=== PATIENT | male | born 1975 | race Caucasian/White ===

== ENCOUNTER 2016-12-10 12:37 | Observation (INO) | payer BC ==
[2016-12-10] MEDS ORDERED: Metoprolol Tartrate IV* 1 MG/ML 5 ML VIAL IV ONE (12:57)
[2016-12-10] MEDS ORDERED: Nitroglycerin 0.4 MG/HR PATCH* (10 MG) TRANSDERM ONE (13:11)
[2016-12-10 13:14] LABS: Hematocrit 45 % (42-52); Hemoglobin 14.9 g/dl (14.0-18.0); Mean Corpuscular HGB Conc 33 g/dl (31-36); Mean Corpuscular Hemoglobin 27 pg (27-31); Mean Corpuscular Volume 83 fL (80-94); Mean Platelet Volume 8 um3 (7.4-10.4); Red Blood Count 5.44 10^6/ul (4.0-5.4); Red Cell Distribution Width 14 % (10.5-15); White Blood Count 14.3 10^3/ul (3.5-10.8)
[2016-12-10 13:32] LABS: Albumin 4.1 g/dL (3.2-5.2); BUN/Creatinine Ratio 16.9 (8-20); Calcium 9.2 mg/dL (8.6-10.3); EGFR African American 120.6 (>60); EGFR Non-African American 93.7 (>60); Potassium 3.7 mmol/L (3.5-5.0); Total Bilirubin 0.4 mg/dL (0.2-1.0); Total Protein 7.1 g/dL (6.4-8.9)
--- NOTE | 2016-12-10 13:54 | RAD ---
INDICATION: Chest pain. COMPARISON: Comparison is made with a prior study from October 20, 2015. TECHNIQUE: A portable view of the chest was obtained. FINDINGS: Cardiac and mediastinal contours appear to be within normal limits. The lungs are clear. No pleural effusion is seen. IMPRESSION: NO EVIDENCE FOR ACUTE DISEASE.
[2016-12-10] MEDS ORDERED: Acetaminophen TAB* 325 MG PO PRN (14:03)
[2016-12-10 14:04] LABS: C Reactive Protein 29.63 mg/L (< 5.00)
[2016-12-10 14:07] LABS: Troponin I 0.05 ng/mL (<0.04)
[2016-12-10] MEDS ORDERED: Albuterol HFA INHALER* 8 gm MDI INH PRN (14:07)
[2016-12-10] MEDS: oxyCODONE TAB* 5 MG TAB PO PRN ×2 (14:46→20:22)
[2016-12-10] MEDS ORDERED: Enoxaparin(*) 40 MG/0.4 ML SYR SUBCUT SCH (15:00)
[2016-12-10] MEDS ORDERED: Morphine INJ* 2 MG/ML 1 ML CARPUJECT IV PRN (16:02)
[2016-12-10 16:25] LABS: Troponin I 0.11 ng/mL (<0.04)
[2016-12-10] MEDS ORDERED: Metoprolol Tartrate TAB* 50 mg PO ONE (16:30)
[2016-12-10] MEDS ORDERED: Heparin DRIP 25,000 UNITS(*) 25,000 UNITS/500 ML BAG IVPB SCH (16:30)
[2016-12-10] MEDS ORDERED: Ticagrelor* 90 MG TAB PO ONE (16:36)
--- NOTE | 2016-12-10 16:48 | PN ---
Hospitalist Progress Note 2nd troponin kaylin to 0.11 and patient is continuing to complain of chest pain. Contacted cissp, Dr Moralez, who will evaluated the patient. Heparin drip was initiated. Loaded with Brilinta. Transferred to ICU. EKG shows no changes. Patient has a confirmed allergy to aspirin. Metoprolol started. Repeat EKG ordered for 2 hours
[2016-12-10] MEDS ORDERED: Nitroglycerin 0.4 MG/HR PATCH* (10 MG) TRANSDERM SCH (17:00)
[2016-12-10] MEDS ORDERED: Clopidogrel TAB* 75 MG PO SCH (17:00)
[2016-12-10] MEDS ORDERED: Atorvastatin* 40 MG TAB PO SCH (17:00)
[2016-12-10] MEDS ORDERED: Heparin VIAL(*) 5000 UNITS/ML VIAL (FIVE THOUSAND) IV SCH (17:00)
[2016-12-10] MEDS ORDERED: nitroGLYCERIN DRIP* 25,000 MCG in PREMIX* 0 ML IV SCH (17:00)
[2016-12-10] MEDS ORDERED: nitroGLYCERIN DRIP* 250 ML ONE ×2 (17:27→18:10)
[2016-12-10] MEDS ORDERED: Midazolam* 1 MG/ML 5 ML VIAL (5 MG) ONE (18:06)
[2016-12-10] MEDS ORDERED: fentaNYL* 50 MCG/ML 2 ML VIAL (100 MCG VIAL) ONE (18:06)
[2016-12-10] MEDS ORDERED: Lidocaine 1% INJ* 10 MG/ML 30 ML SDV ONE (18:07)
[2016-12-10] MEDS ORDERED: Heparin 2 UNITS/ML IVPREMIX* 2,000 ML IV ONE (18:07)
[2016-12-10] MEDS ORDERED: Iohexol 350 (CONTRAST) 200 ML MDV IV ONE (18:07)
[2016-12-10] MEDS ORDERED: nitroGLYCERIN DRIP* 0 ML ONE (18:07)
[2016-12-10] MEDS ORDERED: Heparin(*) 1000 UNIT/ML 10 ML VIAL CATH LAB IV ONE (18:10)
[2016-12-10] MEDS ORDERED: VERAPAMIL 2.5 MG/ML 4 ML VIAL ONE (18:10)
[2016-12-10] MEDS ORDERED: NS 0.9% 1000 ML* 1,000 ML IV SCH (19:30)
--- NOTE | 2016-12-10 19:31 | ED ---
Ishmael Espinoza Janilya, scribed for Jc Diaz MD on 12/10/16 at 1301 . HPI Chest Pain - HPI Summary HPI Summary: A 41 y/o male was BIBA for a sudden episode of CP today an hour and a half ago. Pt was playing basketball with his son when he suddenly felt "massive pain through chest". Pt was not running or doing any strenuous exercise. Pt reports he profoundly felt his heartbeat pulsation in neck and head, but not in jaw. Pt states he felt like his "heart was out of his chest". Pt stopped and went inside. He measured his heartbeat, and it was 151 bpm. He sat down for half an hour, however, his heartbeat only dropped slightly. He then called 911. Pt reports diaphoresis and cold sweats while sitting and waiting for EMS, but no nausea. Pt was given nitro en route by EMS, which helped the CP slightly. He still rated his CP 5/10. Now at [facility], pt reports some CP and some pain going down his left arm. Pt denies chest pain to palpation. PMHx asthma, HTN, herniated disk in lower back and neck. Takes medication for asthma and herniated disk (oxycodone). Allergic to aspirin. No SHx of tobacco use. - History of Current Complaint Time Seen by Provider: 12/10/16 12:39 Hx Obtained From: Patient Onset/Duration: Started Hours Ago, Atraumatic, Still Present Timing: Constant Initial Severity: Moderate Current Severity: Moderate Chest Pain Location: Diffuse Chest Pain Radiates: Yes Chest Pain Radiates To:: Arm, Neck Aggravating Factor(s): Exertion, Movement Alleviating Factor(s): Rest, NTG 123, EMS Tx Associated Signs and Symptoms: Positive: Chest Pain, Chills, Diaphoresis, Cough. Negative: Nausea - Risk Factors Pulmonary Embolism Risk Factors: Negative TAD Risk Factors: Smoking - former, Hypertension AMI/ACS Risk Factors: Hypertension, Smoking - former - Allergy/Home Medications Allergies/Adverse Reactions: Allergies Allergy/AdvReac Type Severity Reaction Status Date / Time Aspirin Allergy Severe Swelling Verified 04/06/16 12:39 Of Face,Lips,& Throat Ibuprofen Allergy Swelling Verified 04/06/16 12:39 Of Face,Lips,& Throat Naproxen Allergy Swelling Verified 05/19/16 12:39 Of Face,Lips,& Throat Home Medications: Home Medications Albuterol Sulfate [Proair Hfa] 2 puff INH Q4H PRN 12/10/16 [History Confirmed ] Diazepam TAB(*) [Valium TAB(*)] 2.5 mg PO BID MDD 4 12/10/16 [History Confirmed 12/10/16] Lisinopril [Lisinopril] 10 mg PO DAILY 12/10/16 [History Confirmed 12/10/16] PMH/Surg Hx/FS Hx/Imm Hx Endocrine/Hematology History: Denies: Hx Diabetes, Hx Thyroid Disease Cardiovascular History: Reports: Hx Hypertension Denies: Hx Pacemaker/ICD Respiratory History: Reports: Hx Asthma Denies: Hx Chronic Obstructive Pulmonary Disease (COPD) GI History: Denies: Hx Ulcer History: Denies: Hx Renal Disease Sensory History: Denies: Hx Hearing Aid Psychiatric History: Denies: Hx Panic Disorder - Surgical History Surgery Procedure, Year, and Place: APPENDIX, GALLBLADDER, TONSILS. 09/01/13 - DISSOLVING [place] Pellets put into LEFT & RiGHT hip - ( HAVE DISSOLVED AT THIS TIME) Infectious Disease History: Denies: Hx Clostridium Difficile, Hx Hepatitis, Hx Human Immunodeficiency Virus (HIV), Hx of Known/Suspected MRSA, Hx Shingles, Hx Tuberculosis, Hx Known/ Suspected VRE, Hx Known/Suspected VRSA, History Other Infectious Disease, Traveled Outside the [place] in Last 30 Days - Family History Known Family History: Negative: Cardiac Disease Family History: Mother - Crohn's. Father - Liver dz - Social History Lives: With Family Alcohol Use: None Hx Substance Use: No Substance Use Type: Reports: None, Prescribed Hx Tobacco Use: Yes Smoking Status (MU): Former Smoker Review of Systems Positive: Chills, Skin Diaphoresis Positive: Palpitations, Chest Pain - radiates to left arm Negative: Nausea Positive: Arthralgia - pt denies CP to palpation, Myalgia - pt denies CP to palpation All Other Systems Reviewed And Are Negative: Yes Physical Exam Triage Information Reviewed: Yes Vital Signs On Initial Exam: Temp Pulse Resp BP Pulse Ox 98.5 F 89 16 154/76 99 12/10/16 12:42 12/10/16 12:42 12/10/16 12:42 12/10/16 12:42 12/10/16 12:42 Vital Signs Reviewed: Yes Appearance: Positive: Well-Appearing, No Pain Distress Skin: Positive: Warm, Skin Color Reflects Adequate Perfusion, Dry Head/Face: Positive: Normal Head/Face Inspection Eyes: Positive: Normal ENT: Positive: Normal ENT inspection Neck: Positive: Supple, Nontender Respiratory/Lung Sounds: Positive: Clear to Auscultation, Breath Sounds Present Cardiovascular: Positive: RRR. Negative: Murmur Abdomen Description: Positive: Nontender, Soft Bowel Sounds: Positive: Present Musculoskeletal: Positive: Normal Neurological: Positive: Normal Psychiatric: Positive: Affect/Mood Appropriate Diagnostics - Vital Signs Vital Signs Temp Pulse Resp BP Pulse Ox 12/10/16 15:00 83 16 98 12/10/16 14:00 86 17 158/87 100 12/10/16 13:30 147/71 12/10/16 13:26 84 15 100 12/10/16 13:21 81 15 140/66 100 12/10/16 13:00 86 15 100 12/10/16 12:50 90 13 99 12/10/16 12:42 98.5 F 89 16 154/76 99 - Laboratory Lab Results: Lab Results 12/10/16 12/10/16 12/10/16 Range/Units 13:05 13:05 13:05 WBC 14.3 H (3.5-10.8) 10^3/ul RBC 5.44 H (4.0-5.4) 10^6/ul Hgb 14.9 (14.0-18.0) g/dl Hct 45 (42-52) % MCV 83 (80-94) fL MCH 27 (27-31) pg MCHC 33 (31-36) g/dl RDW 14 (10.5-15) % Plt Count 270 (150-450) 10^3/ul MPV 8 (7.4-10.4) um3 Neut % (Auto) 84.8 H (38-83) % Lymph % (Auto) 8.3 L (25-47) % [place] % (Auto) 5.7 (1-9) % Eos % (Auto) 0.5 (0-6) % Baso % (Auto) 0.7 (0-2) % Absolute Neuts (auto) 12.2 H (1.5-7.7) 10^3/ul Absolute Lymphs (auto) 1.2 (1.0-4.8) 10^3/ul Absolute Monos (auto) 0.8 (0-0.8) 10^3/ul Absolute Eos (auto) 0.1 (0-0.6) 10^3/ul Absolute Basos (auto) 0.1 (0-0.2) 10^3/ul Absolute Nucleated RBC 0 10^3/ul Nucleated RBC % 0 Sodium 133 (133-145) mmol/L Potassium 3.7 (3.5-5.0) mmol/L Chloride 100 L (101-111) mmol/L Carbon Dioxide 25 (22-32) mmol/L Anion Gap 8 (2-11) mmol/L BUN 15 (6-24) mg/dL Creatinine 0.89 (0.67-1.17) mg/dL Est GFR ( Amer) 120.6 (>60) Est GFR (Non-Af Amer) 93.7 (>60) BUN/Creatinine Ratio 16.9 (8-20) Glucose 109 H (70-100) mg/dL Lactic Acid 2.0 (0.5-2.0) mmol/L Calcium 9.2 (8.6-10.3) mg/dL Total Bilirubin 0.40 (0.2-1.0) mg/dL AST 34 (13-39) U/L ALT 37 (7-52) U/L Alkaline Phosphatase 84 (34-104) U/L Total Creatine Kinase 51 (10-223) U/L CK-MB (CK-2) 2.3 (0.6-6.3) ng/mL Troponin I 0.05 H* (<0.04) ng/mL C-Reactive Protein 29.63 H (< 5.00) mg/L Total Protein 7.1 (6.4-8.9) g/dL Albumin 4.1 (3.2-5.2) g/dL Globulin 3.0 (2-4) g/dL Albumin/Globulin Ratio 1.4 (1-3) Procalcitonin (<0.6) ng/mL 12/10/16 12/10/16 Range/Units 13:05 15:41 WBC (3.5-10.8) 10^3/ul RBC (4.0-5.4) 10^6/ul Hgb (14.0-18.0) g/dl Hct (42-52) % MCV (80-94) fL MCH (27-31) pg MCHC (31-36) g/dl RDW (10.5-15) % Plt Count (150-450) 10^3/ul MPV (7.4-10.4) um3 Neut % (Auto) (38-83) % Lymph % (Auto) (25-47) % [place] % (Auto) (1-9) % Eos % (Auto) (0-6) % Baso % (Auto) (0-2) % Absolute Neuts (auto) (1.5-7.7) 10^3/ul Absolute Lymphs (auto) (1.0-4.8) 10^3/ul Absolute Monos (auto) (0-0.8) 10^3/ul Absolute Eos (auto) (0-0.6) 10^3/ul Absolute Basos (auto) (0-0.2) 10^3/ul Absolute Nucleated RBC 10^3/ul Nucleated RBC % Sodium (133-145) mmol/L Potassium (3.5-5.0) mmol/L Chloride (101-111) mmol/L Carbon Dioxide (22-32) mmol/L Anion Gap (2-11) mmol/L BUN (6-24) mg/dL Creatinine (0.67-1.17) mg/dL Est GFR ( Amer) (>60) Est GFR (Non-Af Amer) (>60) BUN/Creatinine Ratio (8-20) Glucose (70-100) mg/dL Lactic Acid (0.5-2.0) mmol/L Calcium (8.6-10.3) mg/dL Total Bilirubin (0.2-1.0) mg/dL AST (13-39) U/L ALT (7-52) U/L Alkaline Phosphatase (34-104) U/L Total Creatine Kinase 64 (10-223) U/L CK-MB (CK-2) 4.0 (0.6-6.3) ng/mL Troponin I 0.11 H* (<0.04) ng/mL C-Reactive Protein (< 5.00) mg/L Total Protein (6.4-8.9) g/dL Albumin (3.2-5.2) g/dL Globulin (2-4) g/dL Albumin/Globulin Ratio (1-3) Procalcitonin 0.1 (<0.6) ng/mL Result Diagrams: 12/10/16 13:05 12/10/16 13:05 Lab Statement: Any lab studies that have been ordered have been reviewed, and results considered in the medical decision making process. - Radiology CXR Xray Interpretation: No Acute Changes - IMPRESSION: No evidence for acute disease. Radiology Interpretation Completed By: Radiologist - EKG 1233 Cardiac Rate: NL - 89 bpm EKG Rhythm: Sinus Rhythm ST Segment: Non-Specific EKG Interpretation: Consistent w/ EKG done on 10/20/2015 Chest Pain Course/Dx - Course Course Of Treatment: Dallin Tovar presented with a worrisome story for ACS. His ecg was suggestive of inferolateral ischemiaa but not much different from one a year ago. He was given and NTG patch and lopressor was ordered but he refused it. The hospitalists were contacted for CDU admission and his first trop came back at 0.05. - Diagnoses Provider Diagnoses: Chest pain - Provider Notifications Discussed Care Of Patient With: Dr. Mejia (hospitalist) at 1308: agrees to evaluate pt. Discharge - Discharge Plan Condition: Stable Disposition: ADMITTED TO [facility] The documentation as recorded by the Ishmael paz Janilya accurately reflects the service I personally performed and the decisions made by me, Jc Diaz MD.
[2016-12-10] MEDS: oxyCODONE SR TAB(*) 10 MG TAB.SR PO SCH (20:10)
[2016-12-10] MEDS: Metoprolol Tartrate TAB* 25 MG PO SCH (20:22)
--- NOTE | 2016-12-10 20:56 | HP ---
ALLERGY ADDENDUM NOW INCLUDED ON THIS REPORT ADMISSION HISTORY AND PHYSICAL: DATE OF ADMISSION: 12/10/16 PRIMARY CARE PROVIDER: Dr. Carlos. PRIMARY EVALUATION MANAGER: Dr. Gamboa. ADMITTING PROVIDER: JAZ Gaffney SUPERVISING PHYSICIAN: Dr. Bernard Mejia.* (DICTATED BY JAZ GAFFNEY) CHIEF COMPLAINT: Chest pain. HISTORY OF PRESENT ILLNESS: This is a 41-year-old gentleman with chronic neck and back pain as well as GERD, hypertension, asthma, anxiety, and irritable bowel syndrome, who presented to the emergency department with complaints of chest pain. The patient states that he was playing basket ball with his son at a rather low level of intensity due to his chronic pain when he had a sudden onset of chest pain and felt as if "his heart was racing." He was able to walk back to the house quite slowly, but had to take multiple rests and when he came in to the house, he has a pulse oximeter at home because of his history of asthma. He reported that his oxygen saturations were normal, but his heart rate was at approximately 150 beats per minute and after resting for several minutes, it got down only to 120 beats per minute at which point he contacted EMS. The patient was given 1 tablet of nitroglycerin after which his chest pain improved significantly to about a 2/10 on the pain scale from a 5/10 on the pain scale, but reports over the last several minutes, his pain has been increasing again. He denies any personal or family cardiac history. He states that he has had similar symptoms but to a lesser effect with a prior panic attack and had a stress test about 3 years ago which was within normal limits. He states that at the time that he had a panic attack, he had significant stressors at work, but states that he has had no recent stress and denied any anxiety. He is on a twice daily benzodiazepine which serves as anxiolytic as well as muscle relaxant to help treat his chronic neck and back pain. The patient denied any associated shortness of breath. He did become significantly diaphoretic with his pain and the pain radiated into his left shoulder. He denied any nausea or vomiting. No abdominal pain or diarrhea. No recent illnesses. He reports that he has been coughing quite frequently since the pain started, but this was not a symptom prior to the pain starting. PAST MEDICAL HISTORY: 1. GERD. 2. Hypertension. 3. Asthma. 4. Chronic neck and back pain. 5. Irritable bowel syndrome. 6. Anxiety. PAST SURGICAL HISTORY: 1. Appendectomy. 2. Cholecystectomy. 3. Tonsillectomy. HOME MEDICATIONS: 1. ProAir 2 puffs inhaled q.4 hours p.r.n. shortness of breath. 2. Valium 2.5 mg p.o. twice daily. 3. Lisinopril 10 mg p.o. daily. 4. Singulair 10 mg p.o. daily. 5. Protonix 40 mg p.o. daily. 6. Oxycodone sustained release 10 mg p.o. twice daily. 7. Oxycodone immediate release 5 mg p.o. q.4 hours p.r.n. pain. FAMILY HISTORY: The patient denies any family history of coronary disease. Both his mother and father relatively young; his father was of complications of liver disease and his mother of complications of Crohn's disease. SOCIAL HISTORY: The patient lives at home with his and three step- children. 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 He has a less than 5-pack-year smoking history and quit greater than 20 years ago. Denies any regular alcohol consumption. REVIEW OF SYSTEMS: Negative except as noted in the HPI. PHYSICAL EXAMINATION GENERAL: This is a well-appearing, middle-aged gentleman in no acute distress. VITAL SIGNS: Temperature 98.5 degrees Fahrenheit, pulse 89 beats per minute, respiratory rate 16, oxygen saturation 99% on room air, blood pressure 154/76 mmHg. HEENT: Head is normocephalic and atraumatic. Mucous membranes are pink and moist. RESPIRATORY: Lungs are clear to auscultation without wheezes, crackles, or rhonchi. CARDIOVASCULAR: Heart has a regular rate and rhythm without murmurs, rubs, or gallops. ABDOMEN: Soft and nontender to palpation with bowel sounds present. EXTREMITIES: No lower extremity edema. PSYCH: The patient is alert and appropriately oriented. SKIN: Limited exam shows no concerning rashes or lesions. DIAGNOSTIC STUDIES/LAB DATA: CBC shows a white blood cell count of 14,300, hemoglobin 14.9 g/dL, and a platelet count of 270,000. Comprehensive metabolic panel was unremarkable. Sodium of 133 mmol/L, potassium 3.7 mmol/L, BUN of 15, creatinine of 0.89, and estimated GFR of 93. Transaminases and total bilirubin are within normal limits. Troponin elevated at 0.05. CRP mildly elevated at 29. Procalcitonin is pending. Imaging: Chest x-ray shows no acute process. EKG is normal sinus rhythm without acute ischemic changes. ASSESSMENT AND PLAN: This is a 41-year-old gentleman without a personal history or family history of cardiac disease, who presents with sudden-onset chest pain that has been rather persistent with mildly elevated troponin. 1. Chest pain - the patient's history is quite concerning for this to be cardiac in origin and an initial troponin is mildly elevated. No EKG changes appreciated. We will plan to admit and complete serial troponins, maintain continuous telemetry. Start aspirin and empiric statin. If second troponin rises, we will anticoagulate appropriately for acute coronary syndrome. The patient is having ongoing chest pain at this time. We will plan to repeat an EKG as well. Nitro patch placed in the emergency department with some relief. If troponins are unremarkable overnight, then the patient will complete nuclear stress test in the morning. 2. Leukocytosis - CRP is mildly elevated. Procalcitonin is pending. No obvious source of infection. It seems that this is a leukemoid reaction secondary to acute event of chest pain, but we will plan to repeat a CBC tomorrow, be diligent to look for obvious signs of infection. 3. Hypertension - continue lisinopril. 4. Chronic back pain - continue his current regimen of sustained and immediate - release oxycodone. 5. Asthma - no evidence of acute exacerbation and continue p.r.n. albuterol and his daily Singulair. 6. Anxiety - the patient is not looking terribly anxious at this time. We will continue his current home medications of twice daily low-dose Valium. 7. Code status - the patient is full code. 8. Healthcare proxy is the patient's . 9. DVT prophylaxis - he will be placed on Lovenox 40 mg subcu daily. DISPOSITION: The patient is being admitted to observation status for complaints of chest pain with anticipation for discharge tomorrow. JAZ GAFFNEY ADDENDUM: Upon further chart review, the patient has a listed allergy of ASPIRIN. He has a confirmed reaction of facial swelling and itching to this medication. We will not empirically start ASPIRIN, but will load with Plavix if troponin continues to rise. JAZ GAFFNEY CC: Dr. Carlos; Dr. Gamboa* [id number]/[facility] #: [id number]/CPS #: [id number] JANIS
--- NOTE | 2016-12-10 20:56 | HP ---
HISTORY AND PHYSICAL:* DATE OF ADMISSION: 12/10/16 ADDENDUM: Upon further chart review, the patient has a listed allergy of ASPIRIN. He has a confirmed reaction of facial swelling and itching to this medication. We will not empirically start ASPIRIN, but will load with Plavix if troponin continues to rise. JAZ GAFFNEY [id number]/[facility] #: [id number] HEALTH SYSTEMRachael
[2016-12-10] MEDS: Diazepam TAB(*) 5 MG PO SCH (21:29)
--- NOTE | 2016-12-10 23:49 | CONS ---
CARDIOLOGY CONSULTATION: DATE OF CONSULTATION: 12/10/16 INDICATION FOR THE CONSULT: The patient with recurrent chest discomfort, abnormal troponin, rule out the presence of significant coronary artery disease. HISTORY OF PRESENT ILLNESS: The patient is a pleasant 41-year-old gentleman with no prior known history of coronary artery disease. He is known to my practice where I have seen him since 2010 and during that time he has had multiple negative stress tests performed. He has a history of essential hypertension and complains about palpitations, but we have never been able to find any significant rhythm disturbance. He wanted to think over the idea of an implantable loop recorder, but never had called back. He did not follow up in his appointment in 2014. The patient states that he was in his usual state of health, out playing basketball with his son when he developed the onset of significant chest pressure, 10/10, with radiation to the left shoulder and down the left arm. He felt somewhat short of breath with this as well. He felt his heart rate was going incredibly fast. He tried to walk back to his house and had to stop intermittently. Whenever he would exert himself, it would hurt more. Eventually, he got home and checked his blood pressure machine for the pulse and found it to be in the 150s. He eventually called the paramedics and over time prior to them getting there, his pulse seemed to come down to 120, but he still had symptoms. The patient was given nitroglycerin with some clear improvement of symptoms, and by the time he got to the hospital, his pulse rate was significantly lower. An EKG initially in the emergency room, timed 15:22, today revealed normal sinus rhythm, heart rate 82, minimal downsloping ST segment in II, III, and borderline in aVF. There was minimal horizontal depression in V6, clearly not diagnostic for ischemia. He was admitted to the floor. He was placed initially on IV nitroglycerin, but then it was stopped due to headache. By the time he was going up to the floor, he had 3/10 recurrent chest discomfort and has had it even up until the time that I am seeing him now. He is being transferred down to the intensive care unit as the hospitalist had initially spoken to Dr. Zeferino Moralez who referred the case for me to see in consultation, and the hospitalist, Joe Swanson NP, gave the patient 180 mg of Brilinta and bolused with heparin and put on a heparin drip. They have not restarted a nitro drip. The patient's cardiac risk factors include history of essential hypertension. No history of diabetes. No known history of increased cholesterol. No definitive family history of early heart disease and he quit smoking at the age of 20. PAST MEDICAL HISTORY: 1. History of asthma. 2. Essential hypertension. 3. Prior workups for dizziness with normal Holter and question of a 50% narrowing in the proximal portion of the right internal carotid, less on the left. 4. He has a history of atypical chest pain evaluations in the past. ALLERGIES: The patient is allergic to ASPIRIN; after taking EXCEDRIN, he developed swelling of his throat and swelling of his face and needed to be on steroid therapy and was treated in the emergency room for a severe reaction. He has never taken aspirin since. He went to an watch hairspring assembler who said he may be also allergic to NSAIDs. REVIEW OF SYSTEMS: Pertinent to proceeding to the cardiovascular laboratory, he denies any history of hematochezia, hematemesis, hematuria. He denies any history of renal problems in the past. He denies any allergy to the contrast dye and he has had no TIAs or strokes in the past. PHYSICAL EXAMINATION: Vital Signs: When I see him in the intensive care unit reveals pleasant gentleman, still having 3/10 chest discomfort, blood pressure 152/83, pulse is in the 80s, O2 saturation is 98% on room air, respirations 20. Neck is supple. No increased JVP. Carotids with good upstroke and volume without bruits. Conjunctivae are pink. Sclerae are clear. Mouth revealed moist mucosa. Lungs reveal no accessory muscle usage. There is good excursion. Lungs are clear to A and P. Heart reveals no visible heaves. No palpable heaves or thrills. Normal S1. S2 with no S3, S4 gallop. No significant systolic or diastolic murmurs were appreciated. Abdomen is obese, soft, and nontender without organomegaly. Extremities are without clubbing, cyanosis, or randi pitting edema. Peripheral pulses intact. Neuro: The patient is alert, oriented with normal mentation. Musculoskeletal: The patient with normal gait. Psychiatric: The patient with normal affect. LABORATORY DATA: Laboratory results reveal white blood count of 14,300, hemoglobin and hematocrit of 14.9 and 45, platelet count of 270,000. Sodium 133 , potassium 3.7, chloride 100, bicarb 25, BUN and creatinine 15 and 0.8. Lactic acid 2.0. Total bili 0.4, SGOT 34, SGPT 37. First troponin 0.05, repeat troponin of 0.11 after I had asked them to draw total CPK and MB, so in those 2 samples, they came back 51 and 2.3 on the first sample and 64 and 4.0 on the second sample. Chest x-ray report revealed no evidence of acute pathology. OVERALL ASSESSMENT: Dallin now presents with presentation of significant chest discomfort, 08/28, with rising troponins, raising the question of a non-ST elevation, myocardial infarction. His total CPK is not significantly elevated, but the MB is trending upward and CPK is slightly upward. Of note, he has had multiple problems with chest discomfort before. His EKG has subtle ST segment changes to the inferior apical leads. With continued ongoing symptoms and rising troponin, I would favor proceeding to the cardiovascular laboratory to get a definitive answer as to rule in or rule out coronary artery disease. Clearly, if none is present, I would probably attribute this to a development of a tachycardic rhythm with a heart rate in the 150s for a sustained period of time, which may have bumped his troponin slightly. We will await the results of the cardiac catheterization. The risks and benefits were explained to the patient and he understands them and wishes to proceed to get a definitive answer. Further management will be made pending the results of this. He has received Brilinta 180 mg and heparin therapy with a bolus and a heparin drip and on IV nitroglycerin per the hospitalist, JAZ Castillo. We will adjust medications as needed after we get the results of the catheterization. CC: Skyler Carlos MD* [id number]/[facility] #: [id number] JANIS
[2016-12-11] MEDS: oxyCODONE TAB* 5 MG TAB PO PRN ×3 (02:58→15:12)
[2016-12-11 06:05] LABS: Hematocrit 45 % (42-52); Hemoglobin 14.9 g/dl (14.0-18.0); Mean Corpuscular HGB Conc 33 g/dl (31-36); Mean Corpuscular Hemoglobin 28 pg (27-31); Mean Corpuscular Volume 83 fL (80-94); Mean Platelet Volume 8 um3 (7.4-10.4); Red Cell Distribution Width 14 % (10.5-15); White Blood Count 13.1 10^3/ul (3.5-10.8)
[2016-12-11 06:22] LABS: BUN/Creatinine Ratio 15.6 (8-20); Calcium 9.2 mg/dL (8.6-10.3); EGFR African American 110.5 (>60); EGFR Non-African American 85.9 (>60); Potassium 4.1 mmol/L (3.5-5.0)
[2016-12-11 06:26] LABS: Troponin I 0.05 ng/mL (<0.04)
[2016-12-11] MEDS ORDERED: Omeprazole CAP* 20 MG PO SCH (07:30)
--- NOTE | 2016-12-11 08:41 | CATH ---
CARDIAC CATHETERIZATION REPORT: DATE OF PROCEDURE: 12/10/16 - ROOM #ICU-05 INDICATION FOR PROCEDURE: The patient with prolonged chest discomfort episode with rising troponins, rule out the presence of significant coronary artery disease with possible non-STEMI. PROCEDURE: Left heart catheterization, coronary arteriography. DESCRIPTION OF PROCEDURE: The patient was interviewed and examined on the floor of the hospital, where the risks and benefits were explained. He understood them and wished to proceed. He was brought to the cardiovascular laboratory, where a formal time-out was performed. The right radial artery was assessed for eligibility to use for the procedure and it was found to be acceptable for this and, as such, the patient was prepped and draped in a sterile fashion. The right radial artery area was anesthetized with 1% lidocaine and right radial artery was cannulated and a 6- Maltese glide sheath was placed. Coronary arteriography was performed using a 5- Maltese 4 curved TIG catheter. Left heart catheterization was performed utilizing the same TIG catheter as it had dropped into the left ventricle and recording and pullback could be obtained. Following this, the catheter was removed and the sheath was removed. Hemostasis was obtained with a Vasc Band. Of note, medication given during the procedure included a total of 1.5 mg of Versed. The patient had already received a heparin bolus and a heparin drip from admission and 180 mg of Brilinta. The patient has an allergy to ASPIRIN. The total contrast used was 90 cc of Omnipaque dye. The radiation exposure included 4.9 minutes of fluoro time. The air kerma radiation was 833 milligray. The DAP radiation was 4741 microgray per meter squared. RESULTS: HEMODYNAMIC DATA: Left heart catheterization - central aortic pressure was recorded at 109/80 with a mean of 94. Left ventricular pressure 111 over left ventricular end- diastolic pressure of 9. CORONARY ARTERIOGRAPHY: A. Right coronary artery - dominant vessel supplying the PDA and multiple posterior left ventricular branches. There was no significant lesion seen throughout the course of this vessel. Of note, the PDA extended well to the apical region and minimally onto the distal anterior wall. B. Left coronary artery. 1. Left main - widely patent. 2. Left anterior descending artery. There was no significant narrowing seen throughout the course of the left anterior descending artery, extended toward the distal anterior wall, but not well onto the apex or onto the distal inferior wall. The diagonal branches had no significant obstruction noted. 3. Circumflex artery - supplied a high first obtuse marginal branch/ trifurcation marginal branch, small in caliber, but no significant disease. The rest of the circumflex supplied multiple mid and low-lying obtuse marginal branches. The caliber of the mid vessels were small in nature with a larger last posterior left ventricular branch. No fixed obstruction was noted. The ostium of the circumflex had perhaps a 10% to 15% narrowing. OVERALL ASSESSMENT: No significant stenotic coronary artery disease noted with normal left ventricular end-diastolic pressure. The patient will be getting an echocardiogram tomorrow to assess for left ventricular hypertrophy given his history of hypertension and also to assess left atrial and right atrial size with the history of rapid heart beating. Wall motion analysis will also be assessed as well. CC: Dr. Skyler Carlos * [id number]/[facility] #: [id number] MTDD
[2016-12-11] MEDS ORDERED: Lisinopril TAB* 10 MG PO SCH ×2 (09:00)
[2016-12-11] MEDS ORDERED: Montelukast Sodium TAB* 10 MG PO SCH (09:00)
[2016-12-11] MEDS ORDERED: Aspirin EC Low Dose* 81 MG TAB.EC PO SCH (09:00)
[2016-12-11] MEDS ORDERED: Clopidogrel TAB* 75 MG PO SCH (09:00)
[2016-12-11] MEDS: oxyCODONE SR TAB(*) 10 MG TAB.SR PO SCH (09:03)
[2016-12-11] MEDS: Diazepam TAB(*) 5 MG PO SCH (09:04)
[2016-12-11] MEDS: Metoprolol Tartrate TAB* 25 MG PO SCH (09:08)
[2016-12-11 11:21] VITALS: BP 120/69
--- NOTE | 2016-12-11 12:27 | ECHO ---
Patient: HELENA ANDUJAR [facility] Rec#: [id number] : 1975 Date: 12/11/2016 Age: 41y Height: 180.34 cm / 71.0 in Weight: 105.69 kg / 232.9 lbs Sex: M BSA: 2.25 Room#: [facility] Admit Date#: 12/10/2016 Type: Inpatient Referring: Joe Swanson Reading: Sal Aguilar MD [employer] Operator: Parvin Hatch RDCS CC: Skyler Carlos MD Transthoracic Echocardiogram Indication: Chest Pain, NSTEMI BP: 109/63 HR: 67 Rhythm: NSR Findings History: NSTEMI, GERD, HTN, Anxiety. Technical Comments: The study quality is good. Exam completed at 0835. Left Ventricle: The left ventricular chamber size is normal. Posterior wall hypertrophy is observed. There is normal left ventricular systolic function. The estimated ejection fraction is 55-60%. Normal left ventricular diastolic filling is observed. Left Atrium: The left atrium is normal in size. The left atrial chamber size is normal. Right Ventricle: The right ventricular cavity size is normal. The right ventricular global systolic function is normal. Right Atrium: The right atrial cavity size is normal. Aortic Valve: The aortic valve is trileaflet. There is no evidence of aortic valve thickening. There is no evidence of aortic regurgitation. There is no evidence of aortic stenosis. Mitral Valve: The mitral valve leaflets appear normal. There is a trace of mitral regurgitation. There is no evidence of mitral stenosis. Tricuspid Valve: The tricuspid valve leaflets are normal. There is a physiologic tricuspid regurgitation. Unable to estimate the right ventricular systolic pressure. There is no tricuspid stenosis. Pulmonic Valve: The pulmonic valve appears normal. There is no evidence of pulmonic regurgitation. There is no pulmonic stenosis. Pericardium: A trivial pericardial effusion is visualized. There are no signs of significant hemodynamic compromise. Aorta: There is no dilatation of the ascending aorta. There is no dilatation of the aortic arch. There is no dilation of the aortic root. Pulmonary Artery: The main pulmonary artery appears normal. Venous: The venous system is not well visualized. Conclusions There is normal left ventricular systolic function. The estimated ejection fraction is 55-60%. Normal left ventricular diastolic filling is observed. There is no evidence of aortic regurgitation. There is a trace of mitral regurgitation. There is a physiologic tricuspid regurgitation. Unable to estimate the right ventricular systolic pressure. A trivial pericardial effusion is visualized. There are no signs of significant hemodynamic compromise. Measurements Name Value Normal Range RVIDd (AP) 2D 3.6 cm (0.9 - 2.6) RVDdMajor (2D) 3.1 cm (2.2 - 4.4) RAd ISD 4CH 4.6 cm (3.4 - 4.9) RA (A4C)W 4.2 cm (2.9 - 4.6) IVSd (2D) 1 cm (0.6 - 1) LVPWd (2D) 1.1 cm (0.6 - 1) LVIDd (2D) 4.2 cm (3.6 - 5.4) LVIDs (2D) 3 cm - LV FS (2D) 28 % (25 - 45) Aortic Annulus 2 cm (1.4 - 2.6) Ao root diameter (2D) 2.7 cm (2.1 - 3.5) Ascending Ao 2.5 cm (2.1 - 3.4) Aortic arch 2.3 cm (1.8 - 3.4) Descending Ao 1.1 cm - LA dimension (AP) 2D 3.2 cm (2.3 - 3.8) LAd ISD 4CH 5.3 cm (2.9 - 5.3) LA ISD 4CH W 4.4 cm (2.5 - 4.5) Name Value Normal Range LA ESV SP 4CH (A/L) 47 ml - LA ESV SP 2CH (A/L) 41 ml - LA ESV BP (A/L) 49 ml - LA ESV BP (A/L) index 21.71 ml/m2 - LA ESV SP 4CH (MOD) 39 ml - LA ESV SP 2CH (MOD) 37 ml - Name Value Normal Range MV E-wave Vmax 1.1 m/sec - MV deceleration time 215 msec - MV A-wave Vmax 0.8 m/sec - MV E:A ratio 1.34 ratio - LV septal e' Vmax 0.15 m/sec - LV lateral e' Vmax 0.14 m/sec - LV E:e' septal ratio 7.33 ratio - LV E:e' lateral ratio 7.86 ratio - Name Value Normal Range AV Vmax 1.6 m/sec - AV VTI 29.7 cm - AV peak gradient 9.9 mmHg - AV mean gradient 5.04 mmHg - LVOT Vmax 1.3 m/sec - LVOT VTI 27.8 cm - LVOT peak gradient 7.11 mmHg - LVOT mean gradient 3.68 mmHg - Name Value Normal Range PV Vmax 1.3 m/sec - PV peak gradient 6.29 mmHg -
--- NOTE | 2016-12-11 15:46 | DCNOTE ---
Patient seen this morning and again in the afternoon. No chest pain or palpitations. Ambulated around the unit with no issue and no tachycardia. On exam, RRR, s1 and s2 present, no m/g/r, lungs CTA B/L, no w/r/r, abd soft, NTND, BS+ Cardiac catheterization showed no significant stenosis. Troponin elevation likely demand-mediated from tachyarrhytmia. Echo unremarkable. No further tachyarrhythmias on tele. Plan to discharge home on beta-seymour. F/U with Dr. Gamboa and PCP as an outpatient.
--- NOTE | 2016-12-12 09:42 | DS ---
DISCHARGE SUMMARY: DATE OF ADMISSION: 12/08/16. DATE OF DISCHARGE: 12/11/16. PRIMARY CARE PROVIDER: Dr. Carlos. PRINCIPAL DISCHARGE DIAGNOSES: 1. Demand mediated NSTEMI. 2. Tachyarrhythmia. 3. Possible SVT. SECONDARY DIAGNOSES: 1. Hypertension. 2. Chronic back pain. 3. Asthma. 4. GERD. 5. Irritable bowel syndrome. 6. Anxiety. CONSULTANTS DURING HOSPITALIZATION: Dr. Ambrocio Gamboa, Cardiology. STUDIES DONE DURING CONSULTATION: 1. Chest x-ray. Impression: No evidence for acute. 2. Transthoracic echocardiogram: There is normal left ventricular systolic function. The estimated ejection fraction is 55-60%. Normal left ventricular diastolic filling is observed. There is no evidence of aortic regurgitation. There is trace to mild regurgitation. There is physiologic tricuspid regurgitation. Unable to estimate the right ventricular systolic pressure. Trivial pericardial effusion is visualized. There are no signs of significant hemodynamic compromise. 3. Cardiac catheterization. Overall assessment: No significant stenotic coronary artery disease noted with normal ventricular and diastolic pressure. DISCHARGE MEDICATION REGIMEN: 1. Metoprolol 25 mg by mouth 2 times daily. 2. Montelukast 10 mg by mouth daily. 3. Protonix 40 mg mg by mouth daily. 4. Oxycodone 10 mg mg by mouth 2 times daily. 5. Oxycodone extended release 5 mg by mouth every 4 hours as needed for pain. 6. Albuterol sulfate two puffs inhaled every 4 hours as needed for wheezing or shortness of breath. 7. Valium 2.5 mg by mouth 2 times daily. 8. Lisinopril 10 mg by mouth daily. HISTORY OF PRESENT ILLNESS AND HOSPITAL SUMMARY: Please see the full history and physical by JAZ Castillo for full details. Briefly, Mr. Tovar is a 41-year- old male with a past medical history as above who presented to the hospital when he had sudden onset of chest pain and palpitations at home. He called the EMS and was brought to the hospital; by the time he got here, he was in normal sinus rhythm. His initial troponin was mildly elevated at 0.05, and second one was 0.11. Cardiology was consulted. The patient was placed on heparin drip, loaded with Brilinta, and transferred to the ICU. Dr. Gamboa took the patient for cardiac catheterization which showed no significant stenosis of any of the vessels. He underwent an echocardiogram which, as above , was relatively normal. The patient was started on metoprolol in the hospital , had no further tachyarrhythmias while hospitalized. His troponin was trending back down on recheck. He will be discharged on metoprolol in addition to his previous old medications, and follow up with Dr. Gamboa and with his PCP as an outpatient. TIME SPENT: Total spent on this discharge 40 minutes. This is a summary of the hospitalization; please see the full medical records for further details. CC: Dr. Carlos; Ambrocio Gamboa MD* [id number]/[facility] #: [id number] MTDD
== END 2016-12-11 17:00 | disposition home or self-care (01) ==
LOC: ED 12:37 → MEDTELE 14:03 → OBSVTOIN 16:51 → INTOOBSV 16:51 → ICU 17:30
PROVIDERS: ADMIT Internal Medicine; ATTEND Hospitalist
DX: I21.4 Non-ST elevation (NSTEMI) myocardial infarction (principal); R07.9 Chest pain, unspecified; R00.0 Tachycardia, unspecified; K21.9 Gastro-esophageal reflux disease without esophagitis; I10 Essential (primary) hypertension; J45.909 Unspecified asthma, uncomplicated; G89.29 Other chronic pain; M54.2 Cervicalgia; M54.9 Dorsalgia, unspecified; K58.9 Irritable bowel syndrome, unspecified; Z88.6 Allergy status to analgesic agent; Z87.891 Personal history of nicotine dependence; D72.829 Elevated white blood cell count, unspecified; F41.9 Anxiety disorder, unspecified; Y93.67 Activity, basketball
CPT/HCPCS: 36415; 71010; 80048; 80053; 82550; 82553; 83605; 84145; 84484; 85025; 85730; 86140; 87641; 93005; 93306; 93458; 96365; 96366; 96372; 96375; 99284; A9270-GY; G0378; J1644; J2250; J3010; J3490

== ENCOUNTER → 2017-03-27 11:35 | Emergency (ER) | payer BC ==
[~2017-03-27 11:35] MED LIST: NS 0.9% 1000 ML* 2,000 ML IV ONE
[2017-03-27 17:08] LABS: Hematocrit 48 % (42-52); Hemoglobin 15.7 g/dl (14.0-18.0); Mean Corpuscular HGB Conc 33 g/dl (31-36); Mean Corpuscular Hemoglobin 27 pg (27-31); Mean Corpuscular Volume 84 fL (80-94); Mean Platelet Volume 9 um3 (7.4-10.4); Red Blood Count 5.71 10^6/ul (4.0-5.4); Red Cell Distribution Width 14 % (10.5-15)
[2017-03-27 17:09] LABS: Add Diff/Slide Review? Slide Review Added; Comments Flag Yes
[2017-03-27 17:19] LABS: Albumin 4.5 g/dL (3.2-5.2); BUN/Creatinine Ratio 14.6 (8-20); C Reactive Protein 22.5 mg/L (< 5.00); Calcium 9.8 mg/dL (8.6-10.3); EGFR African American 110.5 (>60); EGFR Non-African American 85.9 (>60); Globulin 3.7 g/dL (2-4); Magnesium 2.3 mg/dL (1.9-2.7); Potassium 3.9 mmol/L (3.5-5.0); Total Bilirubin 0.5 mg/dL (0.2-1.0); Total Protein 8.2 g/dL (6.4-8.9)
[2017-03-27 17:24] LABS: Troponin I 0.01 ng/mL (<0.04)
[2017-03-27 17:34] LABS: TSH (Thyroid Stimulating Horm) 2.11 mcIU/mL (0.34-5.60)
--- NOTE | 2017-03-27 17:59 | RAD ---
Indication: 9 days RIGHT lower quadrant pain. Post appendectomy and cholecystectomy. Comparison: March 23, 2017 CT. Technique: RIGHT upper quadrant ultrasound. Report: Appropriate direction flow documented in the portal and hepatic veins. 13.6 cm liver is heterogeneously increased in echogenicity. Negative for focal hepatic lesions. Negative for intrahepatic biliary dilatation. 3.5 mm common bile duct. Post cholecystectomy. Well visualized pancreas without abnormality. 10.8 cm spleen is unremarkable. Negative for ascites. 11.9 x 5.2 x 4.8 cm RIGHT kidney is unremarkable. 11.7 x 5.7 x 5.6 cm LEFT kidney is unremarkable. Normal diameter abdominal aorta visualized through the bifurcation. No conspicuous abnormality at the RIGHT lower quadrant to correspond with the region of clinical concern. IMPRESSION: 1. Heterogeneously increased hepatic echogenicity consistent with fatty infiltration. 2. Post cholecystectomy. 3. Negative for ascites. 4. Negative for obstructive uropathy.
[2017-03-27 18:10] LABS: Urine Bacteria Absent (Absent); Urine Bilirubin Negative (Negative); Urine Glucose Negative (Negative); Urine Nitrite Negative (Negative)
--- NOTE | 2017-03-27 19:04 | RAD ---
Indication: Flu symptoms for 3 weeks. Fever. Elevated white blood cell count. Comparison: March 23, 2017 CT. Technique: Upright AP 1837 hours Report: Large body habitus limits image quality. Accounting for superimposed soft tissues and normal bronchovascular markings the lungs and pleural spaces are clear. Negative for pneumothorax. Upper normal heart size. Bilateral epicardial fat pads. Unremarkable central pulmonary vasculature. IMPRESSION: No evidence for pneumonia. No evidence for acute intrathoracic disease.
--- NOTE | 2017-03-27 19:19 | ED ---
Cesar Espinoza Auryana, scribed for Julius Singh MD on 03/27/17 at 1703 . Abdominal Pain/Male - HPI Summary HPI Summary: 41 year old male presents with nausea and RLQ abdominal pain starting 6 days ago worse since 5 days ago. He characterizes the pain as colicy and states that the pain occasionally radiates downward. He also has fever (max - 102.3), increased fatigue, and testicular pain (started yesterday, now resolved). He denies blood, odor and abnormal color of stool. 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 Previous work up by PCP (Dr. Carlos) in [place], [place] - blood Cx ( - no results yet), lab work , and echocardiogram (NML). Patient states that he called his PCP today due to worsening symptoms and was advised to go to the ER. PMHx is significant for OR with cardiac cath (October 2016), appendectomy, cholecystectomy, kidney stones , and retropharyngeal abscess. - History of Current Complaint Chief Complaint: EDGeneral Stated Complaint: STOMACH PAINS,DIARREAH Time Seen by Provider: 03/27/17 16:17 Hx Obtained From: Patient Onset/Duration: Gradual Onset, Lasting Days - starting 6 days ago, Still Present , Worse Since - 5 days ago Timing: Constant Severity Initially: Mild Severity Currently: Mild Pain Intensity: 5 Pain Scale Used: 0-10 Numeric Location: Discrete At: RLQ Radiates: Yes Radiates to: Other - occassionally radiates downward Character: Colicy Associated Signs And Symptoms: Positive: Fever, Other - increased fatigue and testicular pain (resolved). Negative: Blood in Stool Similar Episode/Dx As:: see HPI - Allergies/Home Medications Allergies/Adverse Reactions: Allergies Allergy/AdvReac Type Severity Reaction Status Date / Time Aspirin Allergy Severe Swelling Verified 03/23/17 07:46 Of Face,Lips,& Throat Ibuprofen Allergy Swelling Verified 03/23/17 07:46 Of Face,Lips,& Throat Naproxen Allergy Swelling Verified 03/23/17 07:46 Of Face,Lips,& Throat PMH/Surg Hx/FS Hx/Imm Hx Endocrine/Hematology History: Denies: Hx Diabetes, Hx Thyroid Disease Cardiovascular History: Reports: Hx Angina, Hx Hypercholesterolemia, Hx Hypertension, Other Cardiovascular Problems/Disorders - Tachycardia Denies: Hx Coronary Artery Disease, Hx Myocardial Infarction, Hx Pacemaker/ ICD, Hx Valvular Heart Disease Respiratory History: Denies: Hx Asthma, Hx Chronic Obstructive Pulmonary Disease (COPD) GI History: Reports: Hx Gastroesophageal Reflux Disease, Other GI Disorders - Cholecystectomy, appendectomy Denies: Hx Ulcer History: Denies: Hx Dialysis, Hx Renal Disease Musculoskeletal History: Reports: Hx Back Problems Sensory History: Denies: Hx Hearing Aid, Other Sensory Impairments - 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 09/01/13 - DISSOLVING Testopell Pellets put into LEFT & RiGHT hip - ( HAVE DISSOLVED AT THIS TIME) Infectious Disease History: No Infectious Disease History: Denies: Hx Clostridium Difficile, Hx Hepatitis, Hx Human Immunodeficiency Virus (HIV), Hx of Known/Suspected MRSA, Hx Shingles, Hx Tuberculosis, Hx Known/ Suspected VRE, Hx Known/Suspected VRSA, History Other Infectious Disease, Traveled Outside the [place] in Last 30 Days - Family History Known Family History: Positive: Other Negative: Cardiac Disease Family History: Mother - Crohn's. 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 Eyes: Negative ENT: Negative Cardiovascular: Negative Respiratory: Negative Positive: Abdominal Pain Positive: pain - testicular pain (resolved) Musculoskeletal: Negative Skin: Negative Neurological: Negative Psychological: Normal All Other Systems Reviewed And Are Negative: Yes Physical Exam Triage Information Reviewed: Yes Vital Signs On Initial Exam: Initial Vitals Temp Pulse Resp BP Pulse Ox 98.9 F 79 18 152/80 100 03/27/17 11:39 03/27/17 11:39 03/27/17 11:39 03/27/17 11:39 03/27/17 11:39 Vital Signs Reviewed: Yes Appearance: Positive: No Pain Distress, Ill-Appearing - mildly Skin: Positive: Warm, Skin Color Reflects Adequate Perfusion, Dry Head/Face: Positive: Normal Head/Face Inspection Eyes: Positive: EOMI, BARI ENT: Positive: Normal ENT inspection Neck: Positive: Supple, Nontender Respiratory/Lung Sounds: Positive: Clear to Auscultation, Breath Sounds Present Cardiovascular: Positive: RRR Abdomen Description: Positive: Soft, Other: - tenderness in the RLQ Bowel Sounds: Positive: Present Male Genital Exam: Positive: normal genitalia, other - testicular exam - NML- no tenderness and no swelling. Negative: scrotum tenderness (R), scrotum tenderness (L), testicular tenderness (R), testicular tenderness (L) Musculoskeletal: Positive: Normal, Strength/ROM Intact Neurological: Positive: Normal, Sensory/Motor Intact, Alert, Oriented to Person Place, Time Psychiatric: Positive: Affect/Mood Appropriate Diagnostics - Vital Signs Vital Signs Temp Pulse Resp BP Pulse Ox 03/27/17 16:00 72 96 03/27/17 15:59 153/77 03/27/17 15:56 98.1 F 72 18 153/77 100 03/27/17 14:07 98.0 F 68 16 128/75 99 03/27/17 12:58 98.9 F 75 18 143/80 100 03/27/17 11:39 98.9 F 79 18 152/80 100 - Laboratory Lab Results: Lab Results 03/27/17 03/27/17 03/27/17 Range/Units 16:07 16:07 16:07 WBC 14.0 H (3.5-10.8) 10^3/ul RBC 5.71 H (4.0-5.4) 10^6/ul Hgb 15.7 (14.0-18.0) g/dl Hct 48 (42-52) % MCV 84 (80-94) fL MCH 27 (27-31) pg MCHC 33 (31-36) g/dl RDW 14 (10.5-15) % Plt Count 323 (150-450) 10^3/ul MPV 9 (7.4-10.4) um3 Neut % (Auto) 80.4 (38-83) % Lymph % (Auto) 13.3 L (25-47) % [place] % (Auto) 5.6 (1-9) % Eos % (Auto) 0.5 (0-6) % Baso % (Auto) 0.2 (0-2) % Absolute Neuts (auto) 11.3 H (1.5-7.7) 10^3/ul Absolute Lymphs (auto) 1.9 (1.0-4.8) 10^3/ul Absolute Monos (auto) 0.8 (0-0.8) 10^3/ul Absolute Eos (auto) 0.1 (0-0.6) 10^3/ul Absolute Basos (auto) 0 (0-0.2) 10^3/ul Absolute Nucleated RBC 0.09 10^3/ul Nucleated RBC % 0.6 INR (Anticoag Therapy) 1.11 (0.89-1.11) APTT 33.9 (26.0-36.3) seconds Sodium 135 (133-145) mmol/L Potassium 3.9 (3.5-5.0) mmol/L Chloride 100 L (101-111) mmol/L Carbon Dioxide 28 (22-32) mmol/L Anion Gap 7 (2-11) mmol/L BUN 14 (6-24) mg/dL Creatinine 0.96 (0.67-1.17) mg/dL Est GFR ( Amer) 110.5 (>60) Est GFR (Non-Af Amer) 85.9 (>60) BUN/Creatinine Ratio 14.6 (8-20) Glucose 89 (70-100) mg/dL Lactic Acid (0.5-2.0) mmol/L Calcium 9.8 (8.6-10.3) mg/dL Magnesium 2.3 (1.9-2.7) mg/dL Total Bilirubin 0.50 (0.2-1.0) mg/dL AST 25 (13-39) U/L ALT 40 (7-52) U/L Alkaline Phosphatase 97 (34-104) U/L Total Creatine Kinase 50 (10-223) U/L CK-MB (CK-2) 1.6 (0.6-6.3) ng/mL Troponin I 0.01 (<0.04) ng/mL C-Reactive Protein 22.50 H (< 5.00) mg/L B-Natriuretic Peptide ( - 100) pg/mL Total Protein 8.2 (6.4-8.9) g/dL Albumin 4.5 (3.2-5.2) g/dL Globulin 3.7 (2-4) g/dL Albumin/Globulin Ratio 1.2 (1-3) Lipase 17 (11.0-82.0) U/L TSH 2.11 (0.34-5.60) mcIU/mL Urine Color Urine Appearance Urine pH (5-9) Ur Specific [place] (1.010-1.030) Urine Protein (Negative) Urine Ketones (Negative) Urine Blood (Negative) Urine Nitrate (Negative) Urine Bilirubin (Negative) Urine Urobilinogen (Negative) Ur Leukocyte Esterase (Negative) Urine WBC (Auto) (Absent) Urine RBC (Auto) (Absent) Urine Bacteria (Absent) Urine Glucose (Negative) 03/27/17 03/27/17 03/27/17 Range/Units 16:07 16:07 17:41 WBC (3.5-10.8) 10^3/ul RBC (4.0-5.4) 10^6/ul Hgb (14.0-18.0) g/dl Hct (42-52) % MCV (80-94) fL MCH (27-31) pg MCHC (31-36) g/dl RDW (10.5-15) % Plt Count (150-450) 10^3/ul MPV (7.4-10.4) um3 Neut % (Auto) (38-83) % Lymph % (Auto) (25-47) % [place] % (Auto) (1-9) % Eos % (Auto) (0-6) % Baso % (Auto) (0-2) % Absolute Neuts (auto) (1.5-7.7) 10^3/ul Absolute Lymphs (auto) (1.0-4.8) 10^3/ul Absolute Monos (auto) (0-0.8) 10^3/ul Absolute Eos (auto) (0-0.6) 10^3/ul Absolute Basos (auto) (0-0.2) 10^3/ul Absolute Nucleated RBC 10^3/ul Nucleated RBC % INR (Anticoag Therapy) (0.89-1.11) APTT (26.0-36.3) seconds Sodium (133-145) mmol/L Potassium (3.5-5.0) mmol/L Chloride (101-111) mmol/L Carbon Dioxide (22-32) mmol/L Anion Gap (2-11) mmol/L BUN (6-24) mg/dL Creatinine (0.67-1.17) mg/dL Est GFR ( Amer) (>60) Est GFR (Non-Af Amer) (>60) BUN/Creatinine Ratio (8-20) Glucose (70-100) mg/dL Lactic Acid 0.8 (0.5-2.0) mmol/L Calcium (8.6-10.3) mg/dL Magnesium (1.9-2.7) mg/dL Total Bilirubin (0.2-1.0) mg/dL AST (13-39) U/L ALT (7-52) U/L Alkaline Phosphatase (34-104) U/L Total Creatine Kinase (10-223) U/L CK-MB (CK-2) (0.6-6.3) ng/mL Troponin I (<0.04) ng/mL C-Reactive Protein (< 5.00) mg/L B-Natriuretic Peptide 813 H ( - 100) pg/mL Total Protein (6.4-8.9) g/dL Albumin (3.2-5.2) g/dL Globulin (2-4) g/dL Albumin/Globulin Ratio (1-3) Lipase (11.0-82.0) U/L TSH (0.34-5.60) mcIU/mL Urine Color Yellow Urine Appearance Clear Urine pH 5.0 (5-9) Ur Specific [place] 1.017 (1.010-1.030) Urine Protein Negative (Negative) Urine Ketones 1+ H (Negative) Urine Blood 1+ H (Negative) Urine Nitrate Negative (Negative) Urine Bilirubin Negative (Negative) Urine Urobilinogen Negative (Negative) Ur Leukocyte Esterase Negative (Negative) Urine WBC (Auto) Absent (Absent) Urine RBC (Auto) Trace(0-2/hpf) (Absent) Urine Bacteria Absent (Absent) Urine Glucose Negative (Negative) Result Diagrams: 03/27/17 16:07 03/27/17 16:07 Lab Statement: Any lab studies that have been ordered have been reviewed, and results considered in the medical decision making process. - Radiology CXR Xray Interpretation: No Acute Changes Radiology Interpretation Completed By: Radiologist - Additional Comments Diagnostic Additional Comments: US ABDOMEN COMPLETE IMPRESSION: 1. Heterogeneously increased hepatic echogenicity consistent with fatty infiltration. 2. Post cholecystectomy. 3. Negative for ascites. 4. Negative for obstructive uropathy. Re-Evaluation - Re-Evaluation First Eval Re-Evaluation Time: 18:15 - discuss labs, US, and plan of action Second Eval Re-Evaluation Time: 19:12 - discused CXR and plan to discharge Abdominal Pain Fem Course/Dx - Course Course Of Treatment: NO CRITICAL CARE TIME Assessment/Plan: WELL IN ED. PATIENT DECLINED ANY CT IMAGING. DISCUSSED RESULTS WITH DONNY. DISCHARGE HOME STABLE. - Diagnoses Provider Diagnoses: Abdominal pain, Diarrhea Discharge - Discharge Plan Condition: Stable Disposition: HOME Patient Education Materials: Abdominal Pain (ED), Acute Diarrhea (ED) Referrals: Skyler Carlos MD [Primary Care Provider] - Additional Instructions: FOLLOW UP WITH YOUR DOCTOR. BRING THE STOOL SAMPLE TO THE LAB OR TO YOUR DOCTOR'S. RETURN TO THE EMERGENCY DEPARTMENT FOR ANY WORSENING OF YOUR CONDITION; pain, fever, vomiting, you feel ill OR QUESTIONS OR CONCERNS. The documentation as recorded by the Cesar paz Auryana accurately reflects the service I personally performed and the decisions made by me, Julius Singh MD.
[2017-03-27 19:31] VITALS: BP 133/70
== END | disposition home or self-care (01) ==
LOC: ED 11:35
DX: R10.31 Right lower quadrant pain (principal); R19.7 Diarrhea, unspecified; Z87.891 Personal history of nicotine dependence; I10 Essential (primary) hypertension; E78.00 Pure hypercholesterolemia, unspecified
CPT/HCPCS: 36415; 71010; 76700; 80053; 81003; 81015; 82272; 82550; 82553; 83605; 83630; 83690; 83735; 83880; 84443; 84484; 85025; 85610; 85730; 86140; 87045; 87046; 87328; 87329; 87493; 87899; 96360; 99283

== ENCOUNTER 2017-04-01 17:33 | Emergency (ER) | payer BC ==
[2017-04-01 19:20] LABS: Hematocrit 43 % (42-52); Hemoglobin 13.9 g/dl (14.0-18.0); Mean Corpuscular HGB Conc 33 g/dl (31-36); Mean Corpuscular Hemoglobin 27 pg (27-31); Mean Corpuscular Volume 83 fL (80-94); Mean Platelet Volume 9 um3 (7.4-10.4); Red Blood Count 5.12 10^6/ul (4.0-5.4); Red Cell Distribution Width 14 % (10.5-15); White Blood Count 13.3 10^3/ul (3.5-10.8)
--- NOTE | 2017-04-01 19:22 | RAD ---
INDICATION: Right lower extremity pain. COMPARISON: Comparison is made with a prior study from March 21, 2012. TECHNIQUE: Multiple real-time, color flow and Doppler tracings of the right lower extremity were obtained. FINDINGS: The common femoral, femoral, profunda femoral and popliteal veins all demonstrate normal compressibility, augmentation with compression and phasic response with respiration. The posterior tibial and peroneal veins demonstrate normal compressibility and augmentation with compression. IMPRESSION: NO EVIDENCE FOR DEEP VENOUS THROMBOSIS.
[2017-04-01 19:34] LABS: BUN/Creatinine Ratio 13.4 (8-20); C Reactive Protein 11.25 mg/L (< 5.00); Calcium 9.2 mg/dL (8.6-10.3); EGFR African American 109.2 (>60); EGFR Non-African American 84.9 (>60); Globulin 3.3 g/dL (2-4); Total Bilirubin 0.4 mg/dL (0.2-1.0); Total Protein 7.3 g/dL (6.4-8.9)
[2017-04-01 20:35] VITALS: BP 120/60
--- NOTE | 2017-04-01 21:24 | ED ---
Booker Espinoza Michael, scribed for Jc Diaz MD on 04/01/17 at 1837 . Abdominal Pain/Male - HPI Summary HPI Summary: 41 y/o male comes to the ED presenting with constant suprapubic abd pain that started 3 days ago after he finished his prescription of Clindamycin. The pt describes the abd pain as cramping, and it is aggravated with movement. He reports that the pain radiates to his testicles. The pt also c/o right thigh pain and diarrhea. The diarrhea started while he was on the abx and was alleviated after he finished his abx prescription. The right thigh pain started this morning, and it is aggravated with standing and movement. The pt was seen on 03/27/17 and was dx with abd pain and diarrhea. During that visit, the pt's WBC was 14 and C-reactive protein was 22.5. The PMHx is significant for GERD, HTN, and chronic back pain. - History of Current Complaint Chief Complaint: EDAbdPain Stated Complaint: RT LEG PAIN Time Seen by Provider: 04/01/17 18:15 Hx Obtained From: Patient, Medical Records Onset/Duration: Sudden Onset, Still Present Timing: Constant Severity Initially: Moderate Severity Currently: Moderate Pain Intensity: 4 Pain Scale Used: 0-10 Numeric Location: Suprapubic Radiates: Yes Radiates to: Other - testicles Character: Cramping Aggravating Factor(s): Nothing Alleviating Factor(s): Nothing Associated Signs And Symptoms: Positive: Other - right thigh pain. - Allergies/Home Medications Allergies/Adverse Reactions: Allergies Allergy/AdvReac Type Severity Reaction Status Date / Time Aspirin Allergy Severe Swelling Verified 03/23/17 07:46 Of Face,Lips,& Throat Ibuprofen Allergy Swelling Verified 03/23/17 07:46 Of Face,Lips,& Throat Naproxen Allergy Swelling Verified 03/23/17 07:46 Of Face,Lips,& Throat PMH/Surg Hx/FS Hx/Imm Hx Endocrine/Hematology History: Denies: Hx Diabetes, Hx Thyroid Disease Cardiovascular History: Reports: Hx Angina, Hx Hypercholesterolemia, Hx Hypertension, Other Cardiovascular Problems/Disorders - Tachycardia Denies: Hx Coronary Artery Disease, Hx Myocardial Infarction, Hx Pacemaker/ ICD, Hx Valvular Heart Disease Respiratory History: Denies: Hx Asthma, Hx Chronic Obstructive Pulmonary Disease (COPD) GI History: Reports: Hx Gastroesophageal Reflux Disease, Other GI Disorders - Cholecystectomy, appendectomy Denies: Hx Ulcer History: Denies: Hx Dialysis, Hx Renal Disease Musculoskeletal History: Reports: Hx Back Problems Sensory History: Denies: Hx Hearing Aid, Other Sensory Impairments - 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 09/01/13 - DISSOLVING Testopell Pellets put into LEFT & RiGHT hip - ( HAVE DISSOLVED AT THIS TIME) Infectious Disease History: No Infectious Disease History: Denies: Hx Clostridium Difficile, Hx Hepatitis, Hx Human Immunodeficiency Virus (HIV), Hx of Known/Suspected MRSA, Hx Shingles, Hx Tuberculosis, Hx Known/ Suspected VRE, Hx Known/Suspected VRSA, History Other Infectious Disease, Traveled Outside the [place] in Last 30 Days - Family History Known Family History: Negative: Cardiac Disease Family History: Mother - Crohn's. Father - Liver dz - Social History Occupation: Employed Full-time Lives: With Family Alcohol Use: None Hx Substance Use: No Substance Use Type: Reports: None Substance Use Comment - Amount & Last Used: [facility]RG[employer] ICU TRANSFER Hx Tobacco Use: Yes Smoking Status (MU): Former Smoker Review of Systems Negative: Fever Positive: Abdominal Pain Positive: other - testicle pain Positive: Other - right thigh pain All Other Systems Reviewed And Are Negative: Yes Physical Exam Triage Information Reviewed: Yes Vital Signs On Initial Exam: Initial Vitals Temp Pulse Resp BP Pulse Ox 98.1 F 69 14 138/83 100 04/01/17 17:35 04/01/17 17:35 04/01/17 17:35 04/01/17 17:35 04/01/17 17:35 Vital Signs Reviewed: Yes Appearance: Positive: Well-Appearing, No Pain Distress Skin: Positive: Warm, Skin Color Reflects Adequate Perfusion, Dry Head/Face: Positive: Normal Head/Face Inspection Eyes: Positive: Normal ENT: Positive: Normal ENT inspection Neck: Positive: Supple, Nontender Respiratory/Lung Sounds: Positive: Clear to Auscultation, Breath Sounds Present Cardiovascular: Positive: RRR Abdomen Description: Positive: Nontender, Soft Bowel Sounds: Positive: Present Musculoskeletal: Positive: Other - mildly tender anterior right thigh not common femoral canal. right enguinal area mild tenderness. Neurological: Positive: Normal Psychiatric: Positive: Normal - [place] Coma Scale Coma Scale Total: 15 Diagnostics - Vital Signs Vital Signs Temp Pulse Resp BP Pulse Ox 04/01/17 17:35 98.1 F 70 14 138/83 100 - Laboratory Lab Results: Lab Results 04/01/17 04/01/17 Range/Units 19:11 19:11 WBC 13.3 H (3.5-10.8) 10^3/ul RBC 5.12 (4.0-5.4) 10^6/ul Hgb 13.9 L (14.0-18.0) g/dl Hct 43 (42-52) % MCV 83 (80-94) fL MCH 27 (27-31) pg MCHC 33 (31-36) g/dl RDW 14 (10.5-15) % Plt Count 266 (150-450) 10^3/ul MPV 9 (7.4-10.4) um3 Neut % (Auto) 83.4 H (38-83) % Lymph % (Auto) 10.6 L (25-47) % [place] % (Auto) 5.2 (1-9) % Eos % (Auto) 0.2 (0-6) % Baso % (Auto) 0.6 (0-2) % Absolute Neuts (auto) 11.1 H (1.5-7.7) 10^3/ul Absolute Lymphs (auto) 1.4 (1.0-4.8) 10^3/ul Absolute Monos (auto) 0.7 (0-0.8) 10^3/ul Absolute Eos (auto) 0 (0-0.6) 10^3/ul Absolute Basos (auto) 0.1 (0-0.2) 10^3/ul Absolute Nucleated RBC 0 10^3/ul Nucleated RBC % 0 Sodium 132 L (133-145) mmol/L Potassium 4.0 (3.5-5.0) mmol/L Chloride 99 L (101-111) mmol/L Carbon Dioxide 28 (22-32) mmol/L Anion Gap 5 (2-11) mmol/L BUN 13 (6-24) mg/dL Creatinine 0.97 (0.67-1.17) mg/dL Est GFR ( Amer) 109.2 (>60) Est GFR (Non-Af Amer) 84.9 (>60) BUN/Creatinine Ratio 13.4 (8-20) Glucose 99 (70-100) mg/dL Calcium 9.2 (8.6-10.3) mg/dL Total Bilirubin 0.40 (0.2-1.0) mg/dL AST 17 (13-39) U/L ALT 29 (7-52) U/L Alkaline Phosphatase 80 (34-104) U/L C-Reactive Protein 11.25 H (< 5.00) mg/L Total Protein 7.3 (6.4-8.9) g/dL Albumin 4.0 (3.2-5.2) g/dL Globulin 3.3 (2-4) g/dL Albumin/Globulin Ratio 1.2 (1-3) Result Diagrams: 04/01/17 19:11 04/01/17 19:11 Lab Statement: Any lab studies that have been ordered have been reviewed, and results considered in the medical decision making process. - Additional Comments Diagnostic Additional Comments: Venous Doppler Study: Radiologist- no evidence for DVT Abdominal Pain Fem Course/Dx - Course Course Of Treatment: Mr. Tovar has been battling a low grade fever and some URI symptoms as well as low right abdominal pain for about three weeks. He has had labs (his WBCs have been running about 14and his CRP in the 20's), CT scan and U/S. This AM he got up and noticed a significant pain in his anterior right thigh. He comes in worried about a DVT. U/S ruled that out and as the rest of his symptomatology is unchanged and his WBCs are 13.5 and CRP is 11, I will let him go to F/U with Dr. Guzmán as previously planned. - Diagnoses Provider Diagnoses: Abdominal pain Discharge - Discharge Plan Condition: Stable Disposition: HOME Patient Education Materials: Abdominal Pain (ED) Referrals: Arielle CHAKRABORTY,Vahe Us [Medical Doctor] - Additional Instructions: Please follow up with Dr. Guzmán within the next week. The documentation as recorded by the Booker paz Michael accurately reflects the service I personally performed and the decisions made by me, Jc Diaz MD.
== END 2017-04-01 20:35 | disposition home or self-care (01) ==
LOC: ED 17:33
DX: R10.9 Unspecified abdominal pain (principal); M79.651 Pain in right thigh; N50.811 Right testicular pain; Z87.891 Personal history of nicotine dependence
CPT/HCPCS: 36415; 80053; 85025; 86140; 86644; 86645; 86664; 86665; 99282

== ENCOUNTER 2017-04-06 08:01 | Emergency (ER) | payer BC ==
[2017-04-06] MEDS ORDERED: NS 0.9% 1000 ML* 1,000 ML IV ONE (08:52)
[2017-04-06 09:02] LABS: Hematocrit 45 % (42-52); Hemoglobin 14.7 g/dl (14.0-18.0); Mean Corpuscular HGB Conc 33 g/dl (31-36); Mean Corpuscular Hemoglobin 27 pg (27-31); Mean Corpuscular Volume 83 fL (80-94); Mean Platelet Volume 9 um3 (7.4-10.4); Red Blood Count 5.41 10^6/ul (4.0-5.4); Red Cell Distribution Width 14 % (10.5-15); White Blood Count 10.6 10^3/ul (3.5-10.8)
[2017-04-06 09:12] LABS: Urine Bilirubin Negative (Negative); Urine Glucose Negative (Negative); Urine Nitrite Negative (Negative)
[2017-04-06 09:14] LABS: Albumin 4.3 g/dL (3.2-5.2); BUN/Creatinine Ratio 12.3 (8-20); C Reactive Protein 8.3 mg/L (< 5.00); Calcium 9.4 mg/dL (8.6-10.3); EGFR African American 98.5 (>60); EGFR Non-African American 76.6 (>60); Globulin 3.3 g/dL (2-4); Magnesium 2.2 mg/dL (1.9-2.7); Potassium 3.8 mmol/L (3.5-5.0); Total Bilirubin 0.6 mg/dL (0.2-1.0); Total Protein 7.6 g/dL (6.4-8.9)
[2017-04-06 09:15] LABS: Ammonia 41 mol/L (16-53)
[2017-04-06 09:19] LABS: B Type Natriuretic Peptide 11 pg/mL
[2017-04-06 12:47] VITALS: BP 119/70
--- NOTE | 2017-04-06 21:11 | ED ---
Cyril Espinoza Billy, scribed for Salvador Bhatti MD on 04/06/17 at 0822 . Complex/Multi-Sys Presentation - HPI Summary HPI Summary: his patient is a 41 year-old male coming to [facility] for evaluation of multiple complaints over the last 3 weeks. He states that he has been feeling feverish lately and complains of lower abdominal pain. He also has shortness of breath with exertion as well as pain through the anterior ribs bilaterally and beneath the shoulder blades. Pain is worse with inspiration. When he coughs, he complains of a metallic taste in the back of his throat. Pain severity 5/10. Denies any recent travel. Denies any prior similar episodes of this pain. He was seen by his PCP and given 2 rounds of antibiotics. He has also been seen by Dr. Guzmán, pending lab results. - History Of Current Complaint Chief Complaint: EDAbdPain Time Seen by Provider: 04/06/17 08:10 Hx Obtained From: Patient Onset/Duration: Gradual Onset, Lasting Weeks Timing: Constant Severity Currently: Moderate Severity Initially: Moderate Location: Pain At: - abdomen, ribs, back Aggravating Factor(s): inspiration Associated Signs And Symptoms: Positive: Fever - Allergies/Home Medications Allergies/Adverse Reactions: Allergies Allergy/AdvReac Type Severity Reaction Status Date / Time Aspirin Allergy Severe Swelling Verified 04/06/17 08:20 Of Face,Lips,& Throat Ibuprofen Allergy Swelling Verified 04/06/17 08:20 Of Face,Lips,& Throat Naproxen Allergy Swelling Verified 04/06/17 08:20 Of Face,Lips,& Throat PMH/Surg Hx/FS Hx/Imm Hx Endocrine/Hematology History: Denies: Hx Diabetes, Hx Thyroid Disease Cardiovascular History: Reports: Hx Angina, Hx Hypercholesterolemia, Hx Hypertension, Other Cardiovascular Problems/Disorders - Tachycardia Denies: Hx Coronary Artery Disease, Hx Myocardial Infarction, Hx Pacemaker/ ICD, Hx Valvular Heart Disease Respiratory History: Denies: Hx Asthma, Hx Chronic Obstructive Pulmonary Disease (COPD) GI History: Reports: Hx Gastroesophageal Reflux Disease, Other GI Disorders - Cholecystectomy, appendectomy Denies: Hx Ulcer History: Denies: Hx Dialysis, Hx Renal Disease Musculoskeletal History: Reports: Hx Back Problems Sensory History: Denies: Hx Hearing Aid, Other Sensory Impairments - 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 09/01/13 - DISSOLVING Testopell Pellets put into LEFT & RiGHT hip - ( HAVE DISSOLVED AT THIS TIME) Infectious Disease History: No Infectious Disease History: Denies: Hx Clostridium Difficile, Hx Hepatitis, Hx Human Immunodeficiency Virus (HIV), Hx of Known/Suspected MRSA, Hx Shingles, Hx Tuberculosis, Hx Known/ Suspected VRE, Hx Known/Suspected VRSA, History Other Infectious Disease, Traveled Outside the [place] in Last 30 Days - Family History Known Family History: Positive: Other Negative: Cardiac Disease Family History: Mother - Crohn's. Father - Liver dz - Social History Alcohol Use: None Hx Substance Use: No Substance Use Type: Reports: Prescribed Substance Use Comment - Amount & Last Used: [employer] URGENT ICU TRANSFER Hx Tobacco Use: Yes Smoking Status (MU): Former Smoker Review of Systems Positive: Fever Positive: Cough Positive: Abdominal Pain Musculoskeletal: Other - Rib and back pain All Other Systems Reviewed And Are Negative: Yes Physical Exam - Summary Physical Exam Summary: VITAL SIGNS: Reviewed. GENERAL: Patient is a well developed and nourished who is lying with disconfort secondary to pain. Patient is not in any acute respiratory distress. HEAD AND FACE: Normocephalic and atraumatic. EYES: PERRLA, EOMI x 2, No injected conjunctiva. EARS: Hearing grossly intact. Ear canals and tympanic membranes are WNL. MOUTH: Oropharynx within normal limits. NECK: Supple, trachea is midline, no adenopathy, no JVD. CHEST: Symmetric, no tenderness at palpation LUNGS: Clear to auscultation bilaterally. No wheezing or crackles. CVS: RRR,, S1 and S2 present, no murmurs or gallops appreciated. ABDOMEN: Soft, Positive RLQ tenderness. No signs of distention. Positive bowel sounds. No rebound no guarding, and no masses palpated. No abdominal bruit or pulsations. EXTREMITIES: FROM in all major joints, no edema, no cyanosis or clubbing. NEURO: Alert and oriented x 3. No acute neurological deficits. Speech is normal. SKIN: Dry and warm Triage Information Reviewed: Yes Vital Signs On Initial Exam: Initial Vitals Temp Pulse Resp BP Pulse Ox 97.3 F 74 18 153/88 100 04/06/17 08:03 04/06/17 08:03 04/06/17 08:03 04/06/17 08:03 04/06/17 08:03 Vital Signs Reviewed: Yes - Maryann Coma Scale Coma Scale Total: 15 Diagnostics - Vital Signs Vital Signs Temp Pulse Resp BP Pulse Ox 04/06/17 08:16 74 99 04/06/17 08:14 150/80 04/06/17 08:06 97.3 F 74 18 153/88 99 04/06/17 08:03 97.3 F 74 18 153/88 100 - Laboratory Result Diagrams: 04/06/17 08:46 04/06/17 08:46 Lab Statement: Any lab studies that have been ordered have been reviewed, and results considered in the medical decision making process. Re-Evaluation - Re-Evaluation First Eval Re-Evaluation Time: 11:16 Change: Unchanged Second Eval Re-Evaluation Time: 12:28 Complex Multi-Symp Course/Dx Assessment/Plan: his patient is a 41 year-old male coming to [facility] for evaluation of multiple complaints over the last 3 weeks. He states that he has been feeling feverish lately and complains of lower abdominal pain. He also has shortness of breath with exertion as well as pain through the anterior ribs bilaterally and beneath the shoulder blades. Pain is worse with inspiration. When he coughs, he complains of a metallic taste in the back of his throat. Pain severity 5/10. Denies any recent travel. Denies any prior similar episodes of this pain. He was seen by his PCP and given 2 rounds of antibiotics. He has also been seen by Dr. Guzmán, pending lab results. Bloodwork WNL. The patient was given IVF. He declined any pain medications. At this point, I discussed my physical exam findings and test results with Dr. Ernandez, the patients GI doctor, and he reports that the patient has had multiple CT scans and ultrasounds, four colonscopies, and that he had already cholecystectomy and appendectomy, and at this point, he will be directed to pain management. He does not recommend any further testing. I discussed these findings with the patient and the need to follow up with PCP and Dr. Ernandez. He agrees and understands. He is hemodynamically stable, A&Ox3. - Diagnoses Provider Diagnoses: Chronic abdominal pain - Physician Notifications Discussed Care Of Patient With: Dr. Ernandez (GI) at 1220: recommends discharge. Discharge - Discharge Plan Condition: Stable Disposition: HOME Patient Education Materials: Chronic Abdominal Pain (ED) Referrals: Skyler Carlos MD [Primary Care Provider] - The documentation as recorded by the Cyril paz Billy accurately reflects the service I personally performed and the decisions made by me, Salvador Bhatti MD.
== END 2017-04-06 12:52 | disposition home or self-care (01) ==
LOC: ED 08:01
DX: R10.30 Lower abdominal pain, unspecified (principal); G89.29 Other chronic pain; Z88.6 Allergy status to analgesic agent; Z87.891 Personal history of nicotine dependence
CPT/HCPCS: 36415; 80053; 81003; 82140; 82150; 83605; 83690; 83735; 83880; 85025; 86140; 87040; 99283

== ENCOUNTER 2017-04-26 18:17 | Emergency (ER) | payer BC ==
[2017-04-26 19:58] LABS: Hematocrit 45 % (42-52); Hemoglobin 14.7 g/dl (14.0-18.0); Mean Corpuscular HGB Conc 33 g/dl (31-36); Mean Corpuscular Hemoglobin 28 pg (27-31); Mean Corpuscular Volume 84 fL (80-94); Mean Platelet Volume 9 um3 (7.4-10.4); Red Blood Count 5.33 10^6/ul (4.0-5.4); Red Cell Distribution Width 14 % (10.5-15); White Blood Count 11.5 10^3/ul (3.5-10.8)
[2017-04-26 20:12] LABS: Albumin 4.4 g/dL (3.2-5.2); BUN/Creatinine Ratio 14.4 (8-20); Calcium 9.4 mg/dL (8.6-10.3); EGFR African American 109.2 (>60); EGFR Non-African American 84.9 (>60); Globulin 3.3 g/dL (2-4); Potassium 4.2 mmol/L (3.5-5.0); Total Bilirubin 0.5 mg/dL (0.2-1.0); Total Protein 7.7 g/dL (6.4-8.9)
--- NOTE | 2017-04-27 00:36 | ED ---
Byron Espinoza Aidan, scribed for Memo Camilo MD on 04/26/17 at 2209 . Complex/Multi-Sys Presentation - HPI Summary HPI Summary: 41 y/o male presents to the ED with a complaint of acute, constant, moderate groin pain that radiates to his scrotum and down his right leg. He is convinced that he has an undiagnosed right-sided inguinal hernia. Pain has persisted for the past 5 days. During a recent visit with urology, it was found that the patient had trace amounts of blood in his urine. He denies any fever or vomiting. Hx of HTN. - History Of Current Complaint Chief Complaint: EDAbdPain Time Seen by Provider: 04/26/17 20:43 Hx Obtained From: Patient Onset/Duration: Sudden Onset, Lasting Hours, Still Present Timing: Constant Severity Currently: Moderate Severity Initially: Moderate Location: Pain At: - groin Character: Pressure Aggravating Factor(s): unknown Alleviating Factor(s): unknown Associated Signs And Symptoms: Positive: Other - some hematuria, according to results at a recent visit with urology - Allergies/Home Medications Allergies/Adverse Reactions: Allergies Allergy/AdvReac Type Severity Reaction Status Date / Time Aspirin Allergy Severe Swelling Verified 04/06/17 08:20 Of Face,Lips,& Throat Ibuprofen Allergy Swelling Verified 04/06/17 08:20 Of Face,Lips,& Throat Naproxen Allergy Swelling Verified 04/06/17 08:20 Of Face,Lips,& Throat PMH/Surg Hx/FS Hx/Imm Hx Endocrine/Hematology History: Denies: Hx Diabetes, Hx Thyroid Disease Cardiovascular History: Reports: Hx Angina, Hx Hypercholesterolemia, Hx Hypertension, Other Cardiovascular Problems/Disorders - Tachycardia Denies: Hx Coronary Artery Disease, Hx Myocardial Infarction, Hx Pacemaker/ ICD, Hx Valvular Heart Disease Respiratory History: Denies: Hx Asthma, Hx Chronic Obstructive Pulmonary Disease (COPD) GI History: Reports: Hx Gastroesophageal Reflux Disease, Other GI Disorders - Cholecystectomy, appendectomy Denies: Hx Ulcer History: Denies: Hx Dialysis, Hx Renal Disease Musculoskeletal History: Reports: Hx Back Problems Sensory History: Denies: Hx Hearing Aid, Other Sensory Impairments - 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 09/01/13 - DISSOLVING Testopell Pellets put into LEFT & RiGHT hip - ( HAVE DISSOLVED AT THIS TIME) Infectious Disease History: No Infectious Disease History: Denies: Hx Clostridium Difficile, Hx Hepatitis, Hx Human Immunodeficiency Virus (HIV), Hx of Known/Suspected MRSA, Hx Shingles, Hx Tuberculosis, Hx Known/ Suspected VRE, Hx Known/Suspected VRSA, History Other Infectious Disease, Traveled Outside the [place] in Last 30 Days - Family History Known Family History: Negative: Cardiac Disease Family History: Mother - Crohn's. Father - Liver dz - Social History Occupation: Employed Full-time Lives: With Family Alcohol Use: None Hx Substance Use: No Substance Use Type: Reports: Prescribed Substance Use Comment - Amount & Last Used: [facility] URGENT ICU TRANSFER Hx Tobacco Use: Yes Smoking Status (MU): Former Smoker Review of Systems Constitutional: Negative Eyes: Negative ENT: Negative Cardiovascular: Negative Respiratory: Negative Gastrointestinal: Negative Genitourinary: Negative Positive: Myalgia - groin pain. Negative: Arthralgia, Decreased ROM, Edema Skin: Negative Neurological: Negative Psychological: Normal All Other Systems Reviewed And Are Negative: Yes Physical Exam - Summary Physical Exam Summary: Constitutional: Well-developed, Well-nourished, Alert. (-) Distressed Skin: Warm, Dry HENT: Normocephalic; Atraumatic Eyes: Conjunctiva normal Neck: Musculoskeletal ROM normal neck. (-) JVD, (-) Stridor, (-) Tracheal deviation Cardio: Rhythm regular, rate normal, Heart sounds normal; Intact distal pulses; The pedal pulses are 2+ and symmetric. Radial pulses are 2+ and symmetric. (-) Murmur Pulmonary/Chest wall: Effort normal. (-) Respiratory distress, (-) Wheezes, (-) Rales Abd: Soft, (-) Tenderness, (-) Distension, (-) Guarding, (-) Rebound Musculoskeletal: (-) Edema Lymph: (-) Cervical adenopathy Neuro: Alert, Oriented x3 Psych: Mood and affect Normal pain with palpation and pain with active ROM, right groin muscles. In the standing position, no inguinal hernia. No urethral tenderness, no epididymal tenderness Triage Information Reviewed: Yes Vital Signs On Initial Exam: Initial Vitals Temp Pulse Resp BP Pulse Ox 97.9 F 64 20 146/86 98 04/26/17 18:21 04/26/17 18:21 04/26/17 18:21 04/26/17 18:21 04/26/17 18:21 Vital Signs Reviewed: Yes - [place] Coma Scale Coma Scale Total: 15 Diagnostics - Vital Signs Vital Signs Temp Pulse Resp BP Pulse Ox 04/26/17 19:10 59 14 105/67 96 04/26/17 18:24 97.7 F 62 20 146/86 100 04/26/17 18:21 97.9 F 64 20 146/86 98 - Laboratory Lab Results: Lab Results 04/26/17 04/26/17 04/26/17 Range/Units 19:50 19:50 19:50 WBC 11.5 H (3.5-10.8) 10^3/ul RBC 5.33 (4.0-5.4) 10^6/ul Hgb 14.7 (14.0-18.0) g/dl Hct 45 (42-52) % MCV 84 (80-94) fL MCH 28 (27-31) pg MCHC 33 (31-36) g/dl RDW 14 (10.5-15) % Plt Count 224 (150-450) 10^3/ul MPV 9 (7.4-10.4) um3 Neut % (Auto) 74.1 (38-83) % Lymph % (Auto) 18.2 L (25-47) % [place] % (Auto) 6.6 (1-9) % Eos % (Auto) 0.7 (0-6) % Baso % (Auto) 0.4 (0-2) % Absolute Neuts (auto) 8.5 H (1.5-7.7) 10^3/ul Absolute Lymphs (auto) 2.1 (1.0-4.8) 10^3/ul Absolute Monos (auto) 0.8 (0-0.8) 10^3/ul Absolute Eos (auto) 0.1 (0-0.6) 10^3/ul Absolute Basos (auto) 0.1 (0-0.2) 10^3/ul Absolute Nucleated RBC 0.01 10^3/ul Nucleated RBC % 0.1 INR (Anticoag Therapy) 1.17 H (0.89-1.11) Sodium 135 (133-145) mmol/L Potassium 4.2 (3.5-5.0) mmol/L Chloride 102 (101-111) mmol/L Carbon Dioxide 28 (22-32) mmol/L Anion Gap 5 (2-11) mmol/L BUN 14 (6-24) mg/dL Creatinine 0.97 (0.67-1.17) mg/dL Est GFR ( Amer) 109.2 (>60) Est GFR (Non-Af Amer) 84.9 (>60) BUN/Creatinine Ratio 14.4 (8-20) Glucose 93 (70-100) mg/dL Calcium 9.4 (8.6-10.3) mg/dL Total Bilirubin 0.50 (0.2-1.0) mg/dL AST 25 (13-39) U/L ALT 31 (7-52) U/L Alkaline Phosphatase 104 (34-104) U/L Total Protein 7.7 (6.4-8.9) g/dL Albumin 4.4 (3.2-5.2) g/dL Globulin 3.3 (2-4) g/dL Albumin/Globulin Ratio 1.3 (1-3) Result Diagrams: 04/26/17 19:50 04/26/17 19:50 Lab Statement: Any lab studies that have been ordered have been reviewed, and results considered in the medical decision making process. Complex Multi-Symp Course/Dx Course Of Treatment: 41 y/o male presents with groin pain. He believes he has an inguinal hernia. He refused CT for radiation risk. Informed him of risk of incarcerated hernia which is not likely but not impossible, I recommended CT again some hours later after ultrasound. He again refused, understanding risk of necrotic bowel/resection/disability/. He will attempt to get an MRI from his PCP tomorrow, he is encouraged to return to ED as needed. I could not palpate a discrete hernia - Diagnoses Provider Diagnoses: Right groin pain Discharge - Discharge Plan Condition: Stable Disposition: AGAINST MEDICAL ADVICE Discharge Disposition Comment: Sign out to Dr. Tucker. Referrals: Skyler Carlos MD [Primary Care Provider] - The documentation as recorded by the Byron paz Aidan accurately reflects the service I personally performed and the decisions made by me, Memo Camilo MD.
[2017-04-27 01:24] VITALS: BP 127/75
--- NOTE | 2017-04-27 08:25 | RAD ---
INDICATION: RIGHT hip pain radiating down the leg. Recent illness with dehydration and immobility. COMPARISON: April 01, 2017 TECHNIQUE: Howe scale, color Doppler, and spectral analysis of the deep veins of the RIGHT lower extremity. Vessel compression, phasicity, and augmentation assessed. REPORT: The RIGHT common femoral, great saphenous, profunda femoral, femoral, popliteal, peroneal, and posterior tibial veins are patent. Patency of the LEFT common femoral vein documented. IMPRESSION: No evidence for RIGHT lower extremity deep venous thrombosis.
--- NOTE | 2017-04-27 08:33 | RAD ---
Indication: RIGHT suprapubic pain radiating down the RIGHT leg. Tender in the region of the RIGHT common femoral artery and vein. Comparison: No relevant prior exams available on the [facility] for comparison. Technique: Scrotal ultrasound. Report: 3.3 x 1.7 x 2.3 cm RIGHT testicle demonstrates normal testicular echotexture. No focal intratesticular lesions. Normal range vascularity. 1.0 x 0.8 cm RIGHT epididymis head is unremarkable. At the tail of the RIGHT epididymis a well circumscribed 0.8 x 0.7 x 0.6 cm hypoechoic but not anechoic lesion with suggestion of posterior acoustic enhancement devoid of intrinsic vascularity is identified likely representing a complex epididymal cyst or spermatocele. Physiologic range small volume of RIGHT scrotal fluid. Negative for varicocele. 3.2 x 1.4 x 1.9 cm LEFT testicle is normal in echotexture and is remarkable for a solitary small calcification of doubtful clinical significance. No suspicious intratesticular lesions evident. Normal range vascularity. 0.6 x 1.0 cm LEFT epididymis head is unremarkable. Negative for LEFT hydrocele or varicocele. IMPRESSION: 1. No evidence for testicular torsion, epididymoorchitis, or suspicious intratesticular lesions. 2. Low suspicion subcentimeter lesion at the RIGHT epididymal tail likely a complex epididymal cyst or spermatocele. Consider reassessment with ultrasound in 6 months to document stability.
== END 2017-04-27 01:23 | disposition left against medical advice (07) ==
LOC: ED 18:17
DX: R10.31 Right lower quadrant pain (principal); R31.9 Hematuria, unspecified; M25.551 Pain in right hip; E78.00 Pure hypercholesterolemia, unspecified; I10 Essential (primary) hypertension; R00.0 Tachycardia, unspecified; K21.9 Gastro-esophageal reflux disease without esophagitis; F41.9 Anxiety disorder, unspecified; Z90.49 Acquired absence of other specified parts of digestive tract; Z88.6 Allergy status to analgesic agent; Z87.891 Personal history of nicotine dependence
CPT/HCPCS: 36415; 76870; 80053; 85025; 85610; 99283

== ENCOUNTER 2018-12-03 23:45 | Emergency (ER) | payer OTHER ==
--- OUTSIDE RECORDS SUMMARY | 2018-12-04 00:01 | XMS REPORT | Continuity of Care Document ---
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 Skyler Carlos MD Primary Care Physician Unavailable Payers Type Date Identification Numbers Payment Provider Subscriber Policy Number: [id number] Vanesa Tovar PayID: [id number] [address] [place] [id number] Expires: 2018 Policy Number: [id number] [employer] Dallin Tovar Onset: 2011 Group Number: [id number] [address] [address] PayID: [id number] [place] [address] Expires: 2018 Policy Number: [id number] BC/BS [employer]AG[employer] Ppo Dallin Tovar PayID: [id number] [address] [address] [place] [address] Policy Number: [id number] [employer] Dallin Tovar Group Number: [id number] [address] PayID: [id number] [place] [address] Advance Directives Description No Information Available Problems Description No Information Family History Date Family Member(s) Problem(s) Comments Father due to Liver Disease () Mother due to chrones disease () Children 3 Siblings 2 Social History Type Date Description Comments Sex Unknown Marital Status Cigarette Use Quit - Age 20 ETOH Use Denies alcohol use Recreational Drug Use Never Used Drugs Tobacco Use Start: Unknown End: Unknown Patient is a former smoker Smoking Status Reviewed: 11/29/18 Patient is a former smoker Allergies, Adverse Reactions, Alerts Date Description Reaction Status Severity Comments 07/24/2012 Aspirin Anaphylaxis Active 07/24/2012 NSAIDs Anaphylaxis Active 03/27/2016 Mushrooms Active 03/27/2016 Environmental Active 11/29/2018 Rifadin Active Medications Medication Date Status Form Strength Qnty SIG Indications Ordering Provider Oxycontin 06/04/ Active Tab ER 12H 10mg 60tabs si by Itz 2014 Abuse-Det mouth 12 Amarjit, hours DO, MPH Oxycodone HCL 07/01/ Active Tablets 5mg 180tab si-2 by Itz 2011 s mouth every Amarjit, 4 hours as DO, MPH directed chronic pain patient Singulair / Active Tablets 10mg 30tabs 1 Q Day Unknown 0000 Protonix / Active Tablets DR 40mg 0tabs si po qd Unknown 0000 ud Proair HFA / Active Aerosol 108(90Base si-2 Unknown 0000 ) mcg/Act puffs a needed Lisinopril / Active Tablets 10mg 1 by mouth Unknown 0000 every day Valium / Active Tablets 5mg si by Unknown 0000 mouth twice daily Probiotic / Active Capsules 250mg Unknown 0000 Bentyl / Active Capsules 10mg bid Unknown 0000 Zithromax 10/30/ Hx Tablets 250mg 6tabs si by Amy Mobley 2018 - mouth every Amarjit, 11/29/ day day 1, 1 DO, MPH 2019 by mouth q4 days as directed Medrol 08/23/ Hx TBPK 4mg 21unit medication Itz 2016 - s to be taken Amarjit, 09/24/ as directed DO, MPH 2016 Medrol ([place]) 02/23/ Hx Tablets 4mg 21tabs sig: as Itz 2015 - directed Amarjit, 03/28/ DO, MPH 2016 Oxycontin 05/04/ Hx Tab ER 12H 10mg 20tabs take one Itz 2014 - Abuse-Det tablet by Amarjit, 06/04/ mouth every DO, MPH 2014 12 hours as directed chronic pain. Cymbalta 11/07/ Hx Caps DR 30mg 60caps si po q Itz 2012 - Part 12hrs ud Amarjit, 02/06/ DO, MPH 2013 chronic pain patient Analgesic 05/13/ Hx Itz, Karely 2012 - Amarjit, ([place]) 06/17/ DO, MPH 2012 Gralise 01/06/ Hx Tablets 300mg 30tabs 1 po q pm Itz 2012 - Amarjit, 02/05/ DO, MPH 2012 Oxycontin 07/12/ Hx Tablets ER 10mg 90tabs si by Itz, 2011 - 12HR mouth every Amarjit, 05/04/ 8 hours as DO, MPH 2014 directed chronic pain patient Dilaudid 06/28/ Hx Tablets 2mg 12tabs si q8h ud Itz 2011 - Amarjit, 07/01/ DO, MPH 2011 chronic pain patient Medrol 06/28/ Hx Tablets 4mg 21tabs sig: ud Itz Dosepak 2011 - Amarjit, 08/05/ DO, MPH 2011 Androgel Pump / Hx Gel 1.25GM/Act Unknown 0000 - (1%) 2012 Oxycodone HCL / Hx Tablets 5mg 180tab si-2 po Unknown 0000 - s q4h ud 2011 chronic pain patient Soma / Hx Tablets 350mg 30tabs 1 po bid ud Unknown 0000 - 2012 Testopel / Hx Pellet 75mg sig: q6 Unknown 0000 - months 2013 Androgel / Hx Gel 50mg/5GM 30unit si pumps Unknown 0000 - s daily 2015 Clindamycin / Hx Capsules 150mg Unknown HCL 0000 - 2016 Doxycycline / Hx Tablets DR 100mg si by Unknown Hyclate 0000 - mouth every 12/21/ 8 hours as 2018 directed Immunizations Description No Information Available Vital Signs Date Vital Result Comment 11/29/2018 11:01am BP Systolic 136 mmHg BP Diastolic 84 mmHg Heart Rate 86 /min Respiratory Rate 20 /min Height 70.50 inches 5'10.50" Weight 234.00 lb Pain Level 7 Pain at this time. Pain Level With Medicine 6 on average with meds Pain Level Without Medicine 10 08/28 without meds BMI (Body Mass Index) 33.1 kg/m2 10/30/2018 10:30am BP Systolic 130 mmHg BP Diastolic 84 mmHg Heart Rate 86 /min Respiratory Rate 20 /min Height 70.50 inches 5'10.50" Weight 234.00 lb Pain Level 5 Pain at this time. Pain Level With Medicine 4 on average with meds Pain Level Without Medicine 08/28 without meds BMI (Body Mass Index) 33.1 kg/m2 09/30/2018 10:06am BP Systolic 136 mmHg BP Diastolic 80 mmHg Heart Rate 74 /min Respiratory Rate 20 /min Height 70.50 inches 5'10.50" Weight 234.00 lb Pain Level 4 Pain at this time. Pain Level With Medicine 4 on average with meds Pain Level Without Medicine 08/28 without meds BMI (Body Mass Index) 33.1 kg/m2 09/02/2018 10:09am BP Systolic 126 mmHg BP Diastolic 78 mmHg Heart Rate 74 /min Respiratory Rate 20 /min Height 70.50 inches 5'10.50" Weight 234.00 lb Pain Level 4 Pain at this time. Pain Level With Medicine 3 on average with meds Pain Level Without Medicine 08/28 without meds BMI (Body Mass Index) 33.1 kg/m2 08/02/2018 9:55am BP Systolic 136 mmHg BP Diastolic 84 mmHg Heart Rate 82 /min Respiratory Rate 20 /min Height 70.50 inches 5'10.50" Weight 234.00 lb Pain Level 7 Pain at this time. Pain Level With Medicine 6 on average with meds Pain Level Without Medicine 08/28 without meds BMI (Body Mass Index) 33.1 kg/m2 07/03/2018 10:03am BP Systolic 136 mmHg BP Diastolic 86 mmHg Heart Rate 84 /min Respiratory Rate 20 /min Height 70.50 inches 5'10.50" Weight 234.00 lb Pain Level 5 Pain at this time. Pain Level With Medicine 4 on average with meds Pain Level Without Medicine 08/28 without meds BMI (Body Mass Index) 33.1 kg/m2 05/31/2018 2:56pm BP Systolic 128 mmHg BP Diastolic 74 mmHg Heart Rate 76 /min Respiratory Rate 20 /min Height 70.50 inches 5'10.50" Weight 228.00 lb Pain Level 8 Pain at this time. Pain Level With Medicine 7 on average with meds Pain Level Without Medicine 08/28 without meds BMI (Body Mass Index) 32.2 kg/m2 05/01/2018 3:56pm BP Systolic 136 mmHg BP Diastolic 86 mmHg Heart Rate 84 /min Respiratory Rate 20 /min Height 70.50 inches 5'10.50" Weight 228.00 lb Pain Level 5 Pain at this time. Pain Level With Medicine 4 on average with meds Pain Level Without Medicine 08/28 without meds BMI (Body Mass Index) 32.2 kg/m2 04/03/2018 3:24pm BP Systolic 136 mmHg BP Diastolic 84 mmHg Heart Rate 86 /min Respiratory Rate 20 /min Height 70.50 inches 5'10.50" Weight 228.00 lb Pain Level 7 Pain at this time. Pain Level With Medicine 6 on average with meds Pain Level Without Medicine 08/28 without meds BMI (Body Mass Index) 32.2 kg/m2 02/22/2018 10:43am BP Systolic 132 mmHg BP Diastolic 74 mmHg Heart Rate 76 /min Respiratory Rate 20 /min Height 70.50 inches 5'10.50" Weight 228.00 lb Pain Level 4 Pain at this time. Pain Level With Medicine 4 on average with meds Pain Level Without Medicine 08/28 without meds Pain Level After Procedure 3 BP Systolic Recheck 140 mmHg Pulse: 84 BP Diastolic Recheck 86 mmHg Pulse: 84 BMI (Body Mass Index) 32.2 kg/m2 01/24/2018 9:52am BP Systolic 136 mmHg BP Diastolic 78 mmHg Heart Rate 74 /min Respiratory Rate 20 /min Height 70.50 inches 5'10.50" Weight 228.00 lb Pain Level 5 Pain at this time. Pain Level With Medicine 4 on average with meds Pain Level Without Medicine 08/28 without meds BMI (Body Mass Index) 32.2 kg/m2 12/21/2017 10:09am BP Systolic 140 mmHg BP Diastolic 78 mmHg Heart Rate 80 /min Respiratory Rate 20 /min Height 70.50 inches 5'10.50" Weight 230.00 lb Pain Level 4 Pain at this time. Pain Level With Medicine 4 on average with meds Pain Level Without Medicine 08/28 without meds BMI (Body Mass Index) 32.5 kg/m2 11/21/2017 10:23am BP Systolic 116 mmHg BP Diastolic 62 mmHg Heart Rate 74 /min Respiratory Rate 20 /min Height 70.50 inches 5'10.50" Weight 218.00 lb Pain Level 5 Pain at this time. Pain Level With Medicine 4 on average with meds Pain Level Without Medicine 08/28 without meds BMI (Body Mass Index) 30.8 kg/m2 10/25/2017 2:49pm BP Systolic 140 mmHg BP Diastolic 80 mmHg Heart Rate 86 /min Respiratory Rate 20 /min Height 70.50 inches 5'10.50" Weight 218.00 lb Pain Level 5 Pain at this time. Pain Level With Medicine 4 on average with meds Pain Level Without Medicine 10 08/28 without meds Pain Level After Procedure 3 BP Systolic Recheck 126 mmHg Pulse: 72 BP Diastolic Recheck 74 mmHg Pulse: 72 BMI (Body Mass Index) 30.8 kg/m2 09/24/2017 9:18am BP Systolic 126 mmHg BP Diastolic 84 mmHg Heart Rate 80 /min Respiratory Rate 20 /min Height 70.50 inches 5'10.50" Weight 218.00 lb Pain Level 5 Pain at this time. Pain Level With Medicine 4 on average with meds Pain Level Without Medicine 08/28 without meds BMI (Body Mass Index) 30.8 kg/m2 08/23/2017 9:32am BP Systolic 132 mmHg BP Diastolic 86 mmHg Heart Rate 84 /min Respiratory Rate 20 /min Height 70.50 inches 5'10.50" Weight 218.00 lb Pain Level 5 Pain at this time. Pain Level With Medicine 5 on average with meds Pain Level Without Medicine 08/28 without meds BMI (Body Mass Index) 30.8 kg/m2 07/11/2017 3:15pm BP Systolic 146 mmHg BP Diastolic 80 mmHg Heart Rate 84 /min Respiratory Rate 20 /min Height 70.50 inches 5'10.50" Weight 222.00 lb Pain Level 5 Pain at this time. Pain Level With Medicine 4 on average with meds Pain Level Without Medicine 08/28 without meds Pain Level After Procedure 3 BP Systolic Recheck 130 mmHg Pulse: 80 BP Diastolic Recheck 78 mmHg Pulse: 80 BMI (Body Mass Index) 31.4 kg/m2 06/15/2017 2:06pm BP Systolic 136 mmHg BP Diastolic 80 mmHg Heart Rate 76 /min Respiratory Rate 20 /min Height 70.50 inches 5'10.50" Weight 222.00 lb Pain Level 3 Pain at this time. Pain Level With Medicine 3 on average with meds Pain Level Without Medicine 10 08/28 without meds BMI (Body Mass Index) 31.4 kg/m2 05/25/2017 10:56am BP Systolic 126 mmHg BP Diastolic 80 mmHg Heart Rate 78 /min Respiratory Rate 20 /min Height 70.50 inches 5'10.50" Weight 223.00 lb Pain Level 5 Pain at this time. Pain Level With Medicine 4 on average with meds Pain Level Without Medicine 10 08/28 without meds BMI (Body Mass Index) 31.5 kg/m2 04/24/2017 10:55am BP Systolic 134 mmHg BP Diastolic 84 mmHg Heart Rate 70 /min Respiratory Rate 16 /min Height 70.50 inches 5'10.50" Weight 224.00 lb Pain Level 4 4/10, Pain at this time. Pain Level With Medicine 2 2/10, on average with meds Pain Level Without Medicine 10 08/28 without meds BMI (Body Mass Index) 31.7 kg/m2 03/26/2017 2:10pm BP Systolic 136 mmHg BP Diastolic 82 mmHg Heart Rate 84 /min Respiratory Rate 20 /min Height 70.50 inches 5'10.50" Weight 232.00 lb Pain Level 3 Pain at this time. Pain Level With Medicine 3 on average with meds Pain Level Without Medicine 08/28 without meds BMI (Body Mass Index) 32.8 kg/m2 03/01/2017 9:50am BP Systolic 144 mmHg BP Diastolic 86 mmHg Heart Rate 84 /min Respiratory Rate 20 /min Height 70.50 inches 5'10.50" Weight 238.00 lb Pain Level 4 Pain at this time. Pain Level With Medicine 3 on average with meds Pain Level Without Medicine 08/28 without meds Pain Level After Procedure 3 BP Systolic Recheck 138 mmHg Pulse: 80 BP Diastolic Recheck 82 mmHg Pulse: 80 BMI (Body Mass Index) 33.7 kg/m2 02/22/2017 10:02am BP Systolic 140 mmHg BP Diastolic 86 mmHg Heart Rate 80 /min Respiratory Rate 20 /min Height 70.50 inches 5'10.50" Weight 238.00 lb Pain Level 4 Pain at this time. Pain Level With Medicine 3 on average with meds Pain Level Without Medicine 08/28 without meds BMI (Body Mass Index) 33.7 kg/m2 01/23/2017 2:48pm BP Systolic 138 mmHg BP Diastolic 84 mmHg Heart Rate 80 /min Respiratory Rate 20 /min Height 70.50 inches 5'10.50" Weight 238.00 lb Pain Level 4 Pain at this time. Pain Level With Medicine 4 on average with meds Pain Level Without Medicine 08/28 without meds BMI (Body Mass Index) 33.7 kg/m2 12/25/2016 10:40am BP Systolic 130 mmHg BP Diastolic 76 mmHg Heart Rate 74 /min Respiratory Rate 18 /min Height 70.50 inches 5'10.50" Weight 238.00 lb Pain Level 3 Pain at this time. Pain Level With Medicine 2 on average with meds Pain Level Without Medicine 10 08/28 without meds BMI (Body Mass Index) 33.7 kg/m2 11/23/2016 10:27am BP Systolic 148 mmHg BP Diastolic 86 mmHg Heart Rate 84 /min Respiratory Rate 20 /min Height 70.50 inches 5'10.50" Weight 238.00 lb Pain Level 5 Pain at this time. Pain Level With Medicine 4 on average with meds Pain Level Without Medicine 10 08/28 without meds Pain Level After Procedure 4 BP Systolic Recheck 142 mmHg Pulse: 88 BP Diastolic Recheck 80 mmHg Pulse: 88 BMI (Body Mass Index) 33.7 kg/m2 10/26/2016 10:54am BP Systolic 140 mmHg BP Diastolic 78 mmHg Heart Rate 70 /min Respiratory Rate 18 /min Height 70.50 inches 5'10.50" Weight 237.00 lb Pain Level 5 5/10, Pain at this time. Pain Level With Medicine 3 3/10, on average with meds Pain Level Without Medicine 10 08/28 without meds BMI (Body Mass Index) 33.5 kg/m2 09/26/2016 10:53am BP Systolic 132 mmHg BP Diastolic 76 mmHg Heart Rate 70 /min Respiratory Rate 18 /min Height 70.50 inches 5'10.50" Weight 235.00 lb Pain Level 4 4/10, Pain at this time. Pain Level With Medicine 2 2/10, on average with meds Pain Level Without Medicine 10 08/28 without meds BMI (Body Mass Index) 33.2 kg/m2 08/25/2016 11:08am BP Systolic 126 mmHg BP Diastolic 78 mmHg Heart Rate 76 /min Respiratory Rate 18 /min Height 70.50 inches 5'10.50" Weight 235.00 lb Pain Level 4 4/10, Pain at this time. Pain Level With Medicine 2 2/10, on average with meds Pain Level Without Medicine 10 08/28 without meds BMI (Body Mass Index) 33.2 kg/m2 07/27/2016 9:14am BP Systolic 130 mmHg BP Diastolic 76 mmHg Heart Rate 76 /min Respiratory Rate 18 /min Height 70.50 inches 5'10.50" Weight 234.00 lb Pain Level 4 4/10, Pain at this time. Pain Level With Medicine 2 2/10, on average with meds Pain Level Without Medicine 10 08/28 without meds BMI (Body Mass Index) 33.1 kg/m2 06/27/2016 9:28am BP Systolic 140 mmHg BP Diastolic 78 mmHg Heart Rate 76 /min Respiratory Rate 18 /min Height 70.50 inches 5'10.50" Weight 234.00 lb Pain Level 5 Pain at this time. Pain Level With Medicine 4 on average with meds Pain Level Without Medicine 10 08/28 without meds Pain Level After Procedure 4 BP Systolic Recheck 128 mmHg Pulse: 78 BP Diastolic Recheck 76 mmHg Pulse: 78 BMI (Body Mass Index) 33.1 kg/m2 05/26/2016 10:04am BP Systolic 148 mmHg BP Diastolic 80 mmHg Heart Rate 84 /min Respiratory Rate 18 /min Height 70.50 inches 5'10.50" Weight 228.00 lb Pain Level 6 Pain at this time. Pain Level With Medicine 5 on average with meds Pain Level Without Medicine 08/28 without meds BMI (Body Mass Index) 32.2 kg/m2 04/27/2016 3:03pm BP Systolic 138 mmHg BP Diastolic 86 mmHg Heart Rate 84 /min Respiratory Rate 20 /min Height 70.50 inches 5'10.50" Weight 228.00 lb Pain Level 4 Pain at this time. Pain Level With Medicine 4 on average with meds Pain Level Without Medicine 08/28 without meds BMI (Body Mass Index) 32.2 kg/m2 03/31/2016 10:33am BP Systolic 128 mmHg BP Diastolic 74 mmHg Heart Rate 74 /min Respiratory Rate 20 /min Height 70.50 inches 5'10.50" Weight 228.00 lb Pain Level 5 Pain at this time. Pain Level With Medicine 5 on average with meds Pain Level Without Medicine 08/28 without meds BMI (Body Mass Index) 32.2 kg/m2 03/28/2016 10:40am BP Systolic 130 mmHg BP Diastolic 76 mmHg Heart Rate 78 /min Respiratory Rate 20 /min Height 70.50 inches 5'10.50" Weight 228.00 lb Pain Level 6 Pain at this time. Pain Level With Medicine 5 on average with meds Pain Level Without Medicine 10 08/28 without meds BMI (Body Mass Index) 32.2 kg/m2 03/27/2016 2:08pm BP Systolic 148 mmHg BP Diastolic 82 mmHg Heart Rate 84 /min Respiratory Rate 18 /min Height 70.50 inches 5'10.50" Weight 228.00 lb Pain Level 6 Pain at this time. Pain Level Without Medicine 10 08/28 without meds BMI (Body Mass Index) 32.2 kg/m2 02/24/2016 11:19am BP Systolic 136 mmHg BP Diastolic 82 mmHg Heart Rate 80 /min Respiratory Rate 20 /min Height 70.50 inches 5'10.50" Weight 228.00 lb Pain Level 6 Pain at this time. Pain Level With Medicine 5 on average with meds Pain Level Without Medicine 10 08/28 without meds BMI (Body Mass Index) 32.2 kg/m2 01/25/2016 10:44am BP Systolic 138 mmHg BP Diastolic 78 mmHg Heart Rate 76 /min Respiratory Rate 18 /min Height 70.50 inches 5'10.50" Weight 232.00 lb Pain Level 6 Pain at this time. Pain Level With Medicine 5 on average with meds Pain Level Without Medicine 10 08/28 without meds BMI (Body Mass Index) 32.8 kg/m2 12/30/2015 10:16am BP Systolic 152 mmHg BP Diastolic 88 mmHg Heart Rate 86 /min Respiratory Rate 20 /min Height 70.50 inches 5'10.50" Weight 232.00 lb Pain Level 6 Pain at this time. Pain Level With Medicine 5 on average with meds Pain Level Without Medicine 08/28 without meds BMI (Body Mass Index) 32.8 kg/m2 11/30/2015 10:08am BP Systolic 130 mmHg BP Diastolic 78 mmHg Heart Rate 88 /min Respiratory Rate 20 /min Height 70.50 inches 5'10.50" Weight 228.00 lb Pain Level 5 Pain at this time. Pain Level With Medicine 4 on average with meds Pain Level Without Medicine 08/28 without meds BMI (Body Mass Index) 32.2 kg/m2 11/01/2015 9:27am BP Systolic 126 mmHg BP Diastolic 78 mmHg Heart Rate 72 /min Respiratory Rate 20 /min Height 70.50 inches 5'10.50" Weight 227.00 lb Pain Level 4 Pain at this time. Pain Level With Medicine 4 on average with meds Pain Level Without Medicine 08/28 without meds BMI (Body Mass Index) 32.1 kg/m2 10/01/2015 9:33am BP Systolic 128 mmHg BP Diastolic 82 mmHg Heart Rate 80 /min Respiratory Rate 20 /min Height 70.50 inches 5'10.50" Weight 230.00 lb Pain Level 4 Pain at this time. Pain Level With Medicine 4 on average with meds Pain Level Without Medicine 10 08/28 without meds BMI (Body Mass Index) 32.5 kg/m2 09/14/2015 10:35am BP Systolic 138 mmHg BP Diastolic 80 mmHg Heart Rate 80 /min Respiratory Rate 20 /min Height 70.50 inches 5'10.50" Weight 242.00 lb Pain Level 7 7/10, Pain at this time. Pain Level With Medicine 6 6/10, on average with meds Pain Level Without Medicine 10 08/28 without meds Pain Level After Procedure 5 BP Systolic Recheck 126 mmHg Pulse: 84 BP Diastolic Recheck 78 mmHg Pulse: 84 BMI (Body Mass Index) 34.2 kg/m2 09/02/2015 9:57am BP Systolic 126 mmHg BP Diastolic 80 mmHg Heart Rate 76 /min Respiratory Rate 18 /min Height 70.50 inches 5'10.50" Weight 242.00 lb Pain Level 6 6/10, Pain at this time. Pain Level With Medicine 5 5/10, on average with meds Pain Level Without Medicine 10 08/28 without meds BMI (Body Mass Index) 34.2 kg/m2 08/03/2015 9:33am BP Systolic 130 mmHg BP Diastolic 78 mmHg Heart Rate 84 /min Respiratory Rate 18 /min Height 70.50 inches 5'10.50" Weight 230.00 lb Pain Level 5 5/10, Pain at this time. Pain Level With Medicine 4 4/10, on average with meds Pain Level Without Medicine 10 08/28 without meds BMI (Body Mass Index) 32.5 kg/m2 07/02/2015 9:07am BP Systolic 130 mmHg BP Diastolic 82 mmHg Heart Rate 84 /min Respiratory Rate 18 /min Height 70.50 inches 5'10.50" Weight 232.00 lb Pain Level 5 5/10, Pain at this time. Pain Level With Medicine 4 4/10, on average with meds Pain Level Without Medicine 10 08/28 without meds BMI (Body Mass Index) 32.8 kg/m2 06/04/2015 2:22pm BP Systolic 140 mmHg BP Diastolic 80 mmHg Heart Rate 78 /min Respiratory Rate 18 /min Height 70.50 inches 5'10.50" Weight 230.00 lb Pain Level 6 6/10, Pain at this time. Pain Level With Medicine 3 3/10, on average with meds Pain Level Without Medicine 7 7/10 BMI (Body Mass Index) 32.5 kg/m2 05/04/2015 10:33am BP Systolic 136 mmHg BP Diastolic 76 mmHg Heart Rate 80 /min Respiratory Rate 18 /min Height 70.50 inches 5'10.50" Weight 218.00 lb Pain Level 4 4/10, Pain at this time. Pain Level With Medicine 4 410, on average with meds Pain Level Without Medicine 10 08/28 without meds BMI (Body Mass Index) 30.8 kg/m2 04/02/2015 10:18am BP Systolic 134 mmHg BP Diastolic 76 mmHg Heart Rate 76 /min Respiratory Rate 18 /min Height 70.50 inches 5'10.50" Weight 222.00 lb Pain Level 4 4/10, Pain at this time. Pain Level With Medicine 3 310, on average with meds Pain Level Without Medicine 10 08/28 without meds BMI (Body Mass Index) 31.4 kg/m2 03/03/2015 10:09am BP Systolic 128 mmHg BP Diastolic 78 mmHg Heart Rate 80 /min Respiratory Rate 18 /min Height 70.50 inches 5'10.50" Weight 229.00 lb Pain Level 8 8/10, Pain at this time. Pain Level With Medicine 5 5/10, on average with meds Pain Level Without Medicine 10 10 without meds Pain Level After Procedure 6 BP Systolic Recheck 132 mmHg Pulse: 84 BP Diastolic Recheck 84 mmHg Pulse: 84 BMI (Body Mass Index) 32.4 kg/m2 02/02/2015 9:59am BP Systolic 132 mmHg BP Diastolic 84 mmHg Heart Rate 78 /min Respiratory Rate 20 /min Height 70.50 inches 5'10.50" Weight 232.00 lb Pain Level 5 Pain at this time. Pain Level With Medicine 5 on average with meds Pain Level Without Medicine 10 08/28 without meds BMI (Body Mass Index) 32.8 kg/m2 01/01/2015 12:59pm BP Systolic 136 mmHg BP Diastolic 82 mmHg Heart Rate 84 /min Respiratory Rate 20 /min Body Temperature 98.6 F Height 70.50 inches 5'10.50" Weight 230.00 lb Pain Level 5.5 Pain at this time. Pain Level With Medicine 4 on average with meds Pain Level Without Medicine 10 08/28 without meds BMI (Body Mass Index) 32.5 kg/m2 12/02/2014 3:16pm BP Systolic 126 mmHg BP Diastolic 80 mmHg Heart Rate 84 /min Respiratory Rate 18 /min Height 70.50 inches 5'10.50" Weight 231.00 lb Pain Level 5 5/10, Pain at this time. Pain Level With Medicine 5 5/10, on average with meds Pain Level Without Medicine 10 08/28 without meds BMI (Body Mass Index) 32.7 kg/m2 11/02/2014 4:07pm BP Systolic 120 mmHg BP Diastolic 74 mmHg Heart Rate 76 /min Respiratory Rate 18 /min Height 70.50 inches 5'10.50" Weight 231.00 lb Pain Level 5 5/10, Pain at this time. Pain Level With Medicine 5 510, on average with meds Pain Level Without Medicine 10 08/28 without meds BMI (Body Mass Index) 32.7 kg/m2 10/05/2014 9:36am BP Systolic 140 mmHg BP Diastolic 80 mmHg Heart Rate 84 /min Respiratory Rate 18 /min Height 70.50 inches 5'10.50" Weight 231.00 lb Pain Level 5.5 5.5/10, Pain at this time. Pain Level With Medicine 5 5/10, on average with meds Pain Level Without Medicine 10 08/28 without meds BMI (Body Mass Index) 32.7 kg/m2 09/03/2014 9:17am BP Systolic 130 mmHg BP Diastolic 82 mmHg Heart Rate 76 /min Respiratory Rate 18 /min Height 70.50 inches 5'10.50" Weight 231.00 lb Pain Level 4.5 4.5/10, Pain at this time. Pain Level With Medicine 4 4/10, on average with meds Pain Level Without Medicine 10 08/28 without meds BMI (Body Mass Index) 32.7 kg/m2 08/06/2014 9:38am BP Systolic 138 mmHg BP Diastolic 82 mmHg Heart Rate 76 /min Respiratory Rate 18 /min Height 70.50 inches 5'10.50" Weight 231.00 lb Pain Level 5.5 5.5/10, Pain at this time. Pain Level With Medicine 5 5/10, on average with meds Pain Level Without Medicine 10 08/28 without meds Pain Level After Procedure 4 BP Systolic Recheck 140 mmHg Pulse: 80 BP Diastolic Recheck 84 mmHg Pulse: 80 BMI (Body Mass Index) 32.7 kg/m2 07/07/2014 9:58am BP Systolic 148 mmHg BP Diastolic 86 mmHg Heart Rate 84 /min Respiratory Rate 20 /min Height 70.50 inches 5'10.50" Weight 230.00 lb Pain Level 5.5-6 Pain at this time. Pain Level With Medicine 5 on average with meds Pain Level Without Medicine 10 08/28 without meds BMI (Body Mass Index) 32.5 kg/m2 06/05/2014 10:34am BP Systolic 156 mmHg BP Diastolic 84 mmHg Heart Rate 84 /min Respiratory Rate 20 /min Height 70.50 inches 5'10.50" Weight 226.00 lb Pain Level 5.5 Pain at this time. Pain Level With Medicine 4 on average with meds Pain Level Without Medicine 10 08/28 without meds BMI (Body Mass Index) 32.0 kg/m2 05/06/2014 10:31am BP Systolic 134 mmHg BP Diastolic 80 mmHg Heart Rate 72 /min Respiratory Rate 18 /min Height 70.50 inches 5'10.50" Weight 227.00 lb Pain Level 5 5/10, Pain at this time. Pain Level With Medicine 5 5/10, on average with meds Pain Level Without Medicine 08/28 without meds BMI (Body Mass Index) 32.1 kg/m2 04/03/2014 9:31am BP Systolic 134 mmHg BP Diastolic 78 mmHg Heart Rate 76 /min Respiratory Rate 18 /min Height 70.50 inches 5'10.50" Weight 226.00 lb Pain Level 7 Pain at this time. Pain Level With Medicine 6 on average with meds Pain Level Without Medicine 10 08/28 without meds Pain Level After Procedure 6 BP Systolic Recheck 128 mmHg Pulse:80 BP Diastolic Recheck 78 mmHg Pulse:80 BMI (Body Mass Index) 32.0 kg/m2 03/03/2014 9:36am BP Systolic 136 mmHg BP Diastolic 84 mmHg Heart Rate 80 /min Respiratory Rate 18 /min Height 70.50 inches 5'10.50" Weight 224.00 lb Pain Level 5 Pain at this time. Pain Level With Medicine 4 on average with meds Pain Level Without Medicine 10 08/28 without meds BMI (Body Mass Index) 31.7 kg/m2 02/06/2014 10:22am BP Systolic 124 mmHg BP Diastolic 80 mmHg Heart Rate 76 /min Respiratory Rate 18 /min Height 70.50 inches 5'10.50" Weight 223.00 lb Pain Level 5 5/10, Pain at this time. Pain Level With Medicine 4 4/10, on average with meds Pain Level Without Medicine 10 08/28 without meds BMI (Body Mass Index) 31.5 kg/m2 01/07/2014 10:00am BP Systolic 128 mmHg BP Diastolic 78 mmHg Heart Rate 76 /min Respiratory Rate 18 /min Height 70.50 inches 5'10.50" Weight 217.00 lb Pain Level 5 5/10, Pain at this time. Pain Level With Medicine 4 410, on average with meds Pain Level Without Medicine 10 08/28 without meds BMI (Body Mass Index) 30.7 kg/m2 12/08/2013 10:08am BP Systolic 132 mmHg BP Diastolic 80 mmHg Heart Rate 76 /min Respiratory Rate 18 /min Height 70.50 inches 5'10.50" Weight 226.00 lb Pain Level 6 6/10 Pain Level Without Medicine 10 08/28 without meds Pain Level After Procedure 4 BP Systolic Recheck 138 mmHg Pulse:80 BP Diastolic Recheck 84 mmHg Pulse:80 BMI (Body Mass Index) 32.0 kg/m2 11/07/2013 11:39am BP Systolic 124 mmHg BP Diastolic 76 mmHg Heart Rate 76 /min Respiratory Rate 18 /min Height 70.50 inches 5'10.50" Weight 224.00 lb Pain Level 7 7/10, Pain at this time. Pain Level With Medicine 4.5-5 4.5-5/10, on average with meds Pain Level Without Medicine 10 08/28 without meds BMI (Body Mass Index) 31.7 kg/m2 10/09/2013 10:24am BP Systolic 126 mmHg BP Diastolic 74 mmHg Heart Rate 76 /min Respiratory Rate 18 /min Height 70.50 inches 5'10.50" Weight 227.00 lb Pain Level 6 6/10, Pain at this time. Pain Level With Medicine 3-4 3-4/10, on average with meds Pain Level Without Medicine 10 08/28 without meds BMI (Body Mass Index) 32.1 kg/m2 09/11/2013 10:36am BP Systolic 134 mmHg BP Diastolic 78 mmHg Heart Rate 82 /min Respiratory Rate 20 /min Height 70.50 inches 5'10.50" Weight 225.00 lb Pain Level 6 6/10, Pain at this time. Pain Level With Medicine 5 5/10, on average with meds Pain Level Without Medicine 10 10 without meds BMI (Body Mass Index) 31.8 kg/m2 08/15/2013 9:18am BP Systolic 134 mmHg BP Diastolic 80 mmHg Heart Rate 84 /min Respiratory Rate 18 /min Height 70.50 inches 5'10.50" Weight 226.00 lb Pain Level 5.5 5.5/10, Pain at this time. Pain Level With Medicine 3-4 3-02/26, on average with meds Pain Level Without Medicine 10 08/28 without meds BMI (Body Mass Index) 32.0 kg/m2 07/17/2013 1:44pm BP Systolic 116 mmHg BP Diastolic 82 mmHg Heart Rate 68 /min Respiratory Rate 18 /min Height 70.50 inches 5'10.50" Weight 228.00 lb Pain Level 5 5/10, Pain at this time. Pain Level With Medicine 4 10, on average with meds Pain Level Without Medicine 10 10 without meds Pain Level After Procedure 3 BP Systolic Recheck 122 mmHg Pulse:76 BP Diastolic Recheck 84 mmHg Pulse:76 BMI (Body Mass Index) 32.2 kg/m2 06/17/2013 3:35pm BP Systolic 142 mmHg BP Diastolic 86 mmHg Heart Rate 80 /min Respiratory Rate 18 /min Body Temperature 99.0 F Height 70.50 inches 5'10.50" Weight 232.00 lb Pain Level 6 6/10, Pain at this time. Pain Level With Medicine 3 3/10, on average with meds Pain Level Without Medicine 10 08/28 without meds BMI (Body Mass Index) 32.8 kg/m2 05/20/2013 4:20pm BP Systolic 126 mmHg BP Diastolic 74 mmHg Heart Rate 80 /min Respiratory Rate 18 /min Height 70.50 inches 5'10.50" Weight 228.00 lb Pain Level 5 5/10, Pain at this time. Pain Level With Medicine 4 4/10, on average with meds Pain Level Without Medicine 10 08/28 without meds BMI (Body Mass Index) 32.2 kg/m2 05/06/2013 10:34am BP Systolic 124 mmHg BP Diastolic 68 mmHg Heart Rate 80 /min Respiratory Rate 18 /min Height 70.50 inches 5'10.50" Weight 228.00 lb Pain Level 5 5/10, Pain at this time. Pain Level With Medicine 3 3/10on average with meds Pain Level Without Medicine 10 10 without meds Pain Level After Procedure 4 BP Systolic Recheck 120 mmHg Pulse:88 BP Diastolic Recheck 82 mmHg Pulse:88 BMI (Body Mass Index) 32.2 kg/m2 04/04/2013 11:25am BP Systolic 124 mmHg BP Diastolic 76 mmHg Heart Rate 74 /min Respiratory Rate 18 /min Height 70.50 inches 5'10.50" Weight 226.00 lb Pain Level 4 4/10, Pain at this time. Pain Level With Medicine 4 410, on average with meds Pain Level Without Medicine 10 08/28 without meds BMI (Body Mass Index) 32.0 kg/m2 03/11/2013 3:50pm BP Systolic 130 mmHg BP Diastolic 80 mmHg Heart Rate 80 /min Respiratory Rate 18 /min Height 70.50 inches 5'10.50" Weight 227.00 lb Pain Level 8 8/10, Pain at this time. Pain Level With Medicine 6 6/10, on average with meds Pain Level Without Medicine 10 08/28 without meds BMI (Body Mass Index) 32.1 kg/m2 03/06/2013 10:08am BP Systolic 142 mmHg BP Diastolic 84 mmHg Heart Rate 88 /min Respiratory Rate 18 /min Height 70.50 inches 5'10.50" Weight 227.00 lb Pain Level 6 6/10, Pain at this time. Pain Level With Medicine 3 3/10, on average with meds Pain Level Without Medicine 10 10 without meds Pain Level After Procedure 4 BP Systolic Recheck 140 mmHg Pulse:76 BP Diastolic Recheck 80 mmHg Pulse:76 BMI (Body Mass Index) 32.1 kg/m2 02/05/2013 9:42am BP Systolic 136 mmHg BP Diastolic 84 mmHg Heart Rate 80 /min Respiratory Rate 18 /min Weight 228.00 lb Pain Level 5 5.5/10, Pain at this time. Pain Level With Medicine 3 3-410, on average with meds Pain Level Without Medicine 10 08/28 without meds 01/06/2013 10:20am BP Systolic 140 mmHg BP Diastolic 80 mmHg Heart Rate 80 /min Respiratory Rate 18 /min Weight 227.00 lb Pain Level 5 5/10, Pain at this time. Pain Level With Medicine 3 3/10, on average with meds Pain Level Without Medicine 10 10 without meds 12/06/2012 1:50pm BP Systolic 140 mmHg BP Diastolic 80 mmHg Heart Rate 80 /min Respiratory Rate 18 /min Weight 223.00 lb Pain Level 4 4/10, Pain at this time. Pain Level With Medicine 4 3-4/10, on average with meds Pain Level Without Medicine 10 08/28 without meds 11/22/2012 3:05pm BP Systolic 140 mmHg BP Diastolic 80 mmHg Heart Rate 76 /min Respiratory Rate 18 /min Weight 223.00 lb Pain Level 5 5/10, Pain at this time. Pain Level With Medicine 4 4/10, on average with meds Pain Level Without Medicine 10 08/28 without meds Pain Level After Procedure 4 BP Systolic Recheck 120 mmHg Pulse:76 BP Diastolic Recheck 70 mmHg Pulse:76 11/07/2012 9:15am BP Systolic 126 mmHg BP Diastolic 78 mmHg Heart Rate 64 /min Respiratory Rate 18 /min Weight 223.00 lb Pain Level 7 7/10, Pain at this time. Pain Level With Medicine 4 4/10, on average with meds Pain Level Without Medicine 10 08/28 without meds 10/08/2012 12:17pm BP Systolic 120 mmHg BP Diastolic 80 mmHg Heart Rate 78 /min Respiratory Rate 18 /min Pain Level 5 5/10, Pain at this time. Pain Level With Medicine 3 3-4/10, on average with meds Pain Level Without Medicine 8 10 without meds 09/04/2012 3:41pm BP Systolic 130 mmHg BP Diastolic 70 mmHg Heart Rate 76 /min Respiratory Rate 18 /min Weight 220.00 lb Pain Level 5 5/10, Pain at this time. Pain Level With Medicine 4 4/10, on average with meds Pain Level Without Medicine 10 08/28 without meds 08/28/2012 4:14pm BP Systolic 130 mmHg BP Diastolic 80 mmHg Heart Rate 78 /min Respiratory Rate 18 /min Weight 220.00 lb Pain Level 4 4/10,, Pain at this time. Pain Level With Medicine 4 4/10, on average with meds Pain Level Without Medicine 10 10/10 without meds Pain Level After Procedure 3 BP Systolic Recheck 130 mmHg Pulse:78 BP Diastolic Recheck 80 mmHg Pulse:78 08/05/2012 4:33pm BP Systolic 128 mmHg BP Diastolic 68 mmHg Heart Rate 72 /min Respiratory Rate 18 /min Weight 219.00 lb Pain Level 4 4/10, Pain at this time. Pain Level With Medicine 3 3/10, on average with meds Pain Level Without Medicine 10 10/10 without meds 07/24/2012 3:46pm BP Systolic 150 mmHg BP Diastolic 80 mmHg Heart Rate 82 /min Respiratory Rate 18 /min Weight 221.00 lb Pain Level 5 5/10, Pain at this time. Pain Level With Medicine 5 5/10, on average with meds Pain Level Without Medicine 10 10/10 without meds Pain Level After Procedure 4 BP Systolic Recheck 130 mmHg Pulse:82 BP Diastolic Recheck 80 mmHg Pulse:82 07/12/2012 9:09am BP Systolic 112 mmHg BP Diastolic 68 mmHg Heart Rate 84 /min Respiratory Rate 18 /min Weight 221.00 lb Pain Level 5 5/10, Pain at this time. Pain Level With Medicine 5 5/10, on average with meds Pain Level Without Medicine 10 10/10 without meds 06/28/2012 9:22am BP Systolic 120 mmHg BP Diastolic 80 mmHg Heart Rate 80 /min Respiratory Rate 18 /min Weight 218.00 lb Pain Level 5 5/10, Pain at this time. Pain Level With Medicine 5 5/10, on average with meds Pain Level Without Medicine 10 10/10 without meds Results Description No Information Available Procedures Date Code Description Status 02/22/2018 76337 Omt 1-2 Body Regions Completed 02/22/2018 93230 Injection For Nerve Block, Other Peripheral Nerve Or Completed Branch 12/21/2017 09292 Omt 1-2 Body Regions Completed 11/21/2017 17073 Omt 1-2 Body Regions Completed 10/25/2017 38448 Omt 1-2 Body Regions Completed 10/25/2017 94438 U/S Guidance For Needle Placement Completed 10/25/2017 05118 Inject/Drain Arthrocentesis Major Joint/Bursa/Ganglion Completed Cyst 09/24/2017 25371 Omt 1-2 Body Regions Completed 07/11/2017 21285 U/S Guidance For Needle Placement Completed 07/11/2017 94155 Inject/Drain Arthrocentesis Major Joint/Bursa/Ganglion Completed Cyst 03/01/201797506 Inject/Drain Arthrocentesis Major Joint/Bursa/Ganglion Completed Cyst 11/23/201671160 Inject/Drain Arthrocentesis Major Joint/Bursa/Ganglion Completed Cyst 11/23/2016 84519 U/S Guidance For Needle Placement Completed 06/27/2016 14907 U/S Guidance For Needle Placement Completed 06/27/201616540 Inject/Drain Arthrocentesis Major Joint/Bursa/Ganglion Completed Cyst 03/29/2016 15898 Nerve Conduction 11-12 Studies Completed 01/25/2016 56897 U/S Guidance For Needle Placement Completed 01/25/201673389 Inject/Drain Arthrocentesis Major Joint/Bursa/Ganglion Completed Cyst 11/30/2015 03269 Test Autonomic Nervous System, Sudomotor Completed 09/14/2015 76714 U/S Guidance For Needle Placement Completed 09/14/201533874 Inject/Drain Arthrocentesis Major Joint/Bursa/Ganglion Completed Cyst 06/04/2015 79085 Test Autonomic Nervous System, Sudomotor Completed 03/03/201548368 Inject/Drain Arthrocentesis Major Joint/Bursa/Ganglion Completed Cyst 03/03/2015 17381 U/S Guidance For Needle Placement Completed 08/06/2014 66898 U/S Guidance For Needle Placement Completed 08/06/201431535 Inject/Drain Arthrocentesis Major Joint/Bursa/Ganglion Completed Cyst 04/03/2014 44809 U/S Guidance For Needle Placement Completed 04/03/201422872 Inject/Drain Arthrocentesis Major Joint/Bursa/Ganglion Completed Cyst 12/08/2013 26727 U/S Guidance For Needle Placement Completed 12/08/201329226 Inject/Drain Arthrocentesis Major Joint/Bursa/Ganglion Completed Cyst 07/17/2013 23800 Injection, Single Or Mutiple Trigger Points One Or Two Completed Muscles 05/06/2013 65155 U/S Guidance For Needle Placement Completed 05/06/201338366 Inject/Drain Arthrocentesis Major Joint/Bursa/Ganglion Completed Cyst 03/06/201311724 Inject/Drain Arthrocentesis Major Joint/Bursa/Ganglion Completed Cyst 03/06/2013 74032 U/S Guidance For Needle Placement Completed 11/22/2012 80330 U/S Guidance For Needle Placement Completed 11/22/2012 96788 U/S Guidance For Needle Placement Completed 11/22/201204846 Inject/Drain Arthrocentesis Major Joint/Bursa/Ganglion Completed Cyst 11/22/201246166 Inject/Drain Arthrocentesis Major Joint/Bursa/Ganglion Completed Cyst 08/28/2012 68775 U/S Guidance For Needle Placement Completed 08/28/201283346 Inject/Drain Arthrocentesis Major Joint/Bursa/Ganglion Completed Cyst 08/28/201289903 Inject Tendon/Ligament Completed 07/24/2012 21377 U/S Guidance For Needle Placement Completed 07/24/201201885 Inject/Drain Arthrocentesis Major Joint/Bursa/Ganglion Completed Cyst Encounters Type Date Location Provider Dx Diagnosis Office Visit 10/30/2018 Main Office as Of Amarjit Mobley DO G89.21 Chronic pain due 10:15a 12/20/13 MPH to trauma M54.17 Radiculopathy, lumbosacral region Z79.891 [facility] (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 Z79.891 [facility] (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 Office Visit 09/30/2018 10:15a Main Office as Amarjit Mobley G89.21 Chronic pain due Of 12/20/13 DO, MPH to trauma M54.17 Radiculopathy, lumbosacral region 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 Office Visit 09/02/2018 10:00a Main Office as Amarjit Mobley G89.21 Chronic pain due Of 12/20/13 DO, MPH to trauma M54.17 Radiculopathy, lumbosacral region M54.5 Low back pain Z79.891 [facility] (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 Office Visit 08/02/2018 9:45a Main Office as Amarjit Mobley G89.21 Chronic pain due Of 12/20/13 DO, MPH to trauma M54.17 Radiculopathy, lumbosacral region M54.5 Low back pain Z79.891 [facility] (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 Z79.891 [facility] (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 Office Visit 07/03/2018 10:00a Main Office as Amarjit Mobley G89.21 Chronic pain due Of 12/20/13 DO, MPH to trauma G89.21 Chronic pain due to trauma M54.5 Low back pain M54.5 Low back pain M54.17 Radiculopathy, lumbosacral region M54.17 Radiculopathy, lumbosacral region 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 Z79.891 [facility] (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 Office Visit 05/31/2018 2:45p Main Office as Amarjit Mobley G89.21 Chronic pain due Of 12/20/13 DO, MPH to trauma M54.5 Low back pain M54.17 Radiculopathy, lumbosacral region Z79.891 [facility] (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 Office Visit 05/01/2018 4:00p Main Office as Amarjit Mobley G89.21 Chronic pain due Of 12/20/13 DO, MPH to trauma M54.5 Low back pain M53.3 Sacrococcygeal disorders, not elsewhere classified M54.17 Radiculopathy, lumbosacral region Office Visit 04/03/2018 3:30p Main Office as Amarjit Mobley G89.21 Chronic pain due Of 12/20/13 DO, MPH to trauma M54.5 Low back pain M53.3 Sacrococcygeal disorders, not elsewhere classified M54.17 Radiculopathy, lumbosacral region Office Visit 02/22/2018 11:00a Main Office as Amarjit Mobley G89.21 Chronic pain due Of 12/20/13 DO, MPH to trauma M54.5 Low back pain M99.03 Segmental and somatic dysfunction of lumbar region M53.3 Sacrococcygeal disorders, not elsewhere classified M54.17 Radiculopathy, lumbosacral region 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 Office Visit 01/24/2018 10:00a Main Office as Amarjit Mobley G89.21 Chronic pain due Of 12/20/13 DO, MPH to trauma M54.5 Low back pain 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 Office Visit 12/21/2017 10:00a Main Office as Amarjit Mobley G89.21 Chronic pain due Of 12/20/13 DO, MPH to trauma M54.5 Low back pain M99.03 Segmental and somatic dysfunction of lumbar region 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 Z79.891 [facility] (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 Office Visit 11/21/2017 10:15a Main Office as Amarjit Mobley G89.21 Chronic pain due Of 12/20/13 DO, MPH to trauma M54.5 Low back pain M99.03 Segmental and somatic dysfunction of lumbar region 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 Office Visit 10/25/2017 2:45p Main Office as Amarjit Mobley G89.21 Chronic pain due Of 12/20/13 DO, MPH to trauma M54.5 Low back pain M99.03 Segmental and somatic dysfunction of lumbar region M79.1 Myalgia M46.1 Sacroiliitis, not elsewhere classified 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 Office Visit 09/24/2017 9:30a Main Office as Amarjit Mobley G89.21 Chronic pain due Of 12/20/13 DO, MPH to trauma M54.5 Low back pain M99.03 Segmental and somatic dysfunction of lumbar region M79.1 Myalgia 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 Office Visit 08/23/2017 9:30a Main Office as Amarjit Mobley G89.21 Chronic pain due Of 12/20/13 DO, MPH to trauma M54.5 Low back pain M79.1 Myalgia 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 Z79.891 [facility] (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 Office Visit 07/11/2017 3:15p Main Office as Amarjit Mobley G89.21 Chronic pain due Of 12/20/13 DO, MPH to trauma M54.5 Low back pain M46.1 Sacroiliitis, not elsewhere classified Z79.891 [facility] (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 Z79.891 [facility] (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 Office Visit 06/15/2017 2:00p Main Office as Amarjit Mobley G89.21 Chronic pain due Of 12/20/13 DO, MPH to trauma M54.5 Low back pain M46.1 Sacroiliitis, not elsewhere classified 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891 [facility] (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 Office Visit 03/26/2017 2:00p Main Office as Amarjit Mobley G89.21 Chronic pain due Of 12/20/13 DO, MPH to trauma M54.5 Low back pain M46.1 Sacroiliitis, not elsewhere classified 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 Office Visit 03/01/2017 10:15a Main Office as Amarjit Mobley G89.21 Chronic pain due Of 12/20/13 DO, MPH to trauma M54.5 Low back pain M46.1 Sacroiliitis, not elsewhere classified Z79.891 [facility] (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 Office Visit 02/22/2017 10:00a Main Office as Anne Patten G89.21 Chronic pain Of 12/20/13 [place] [employer] due to trauma M54.5 Low back pain Z71.89 Other specified counseling 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 Z79.891 [facility] (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 Office Visit 01/23/2017 2:45p Main Office as Amarjit Mobley G89.21 Chronic pain due Of 12/20/13 DO, MPH to trauma M54.5 Low back pain M79.1 Myalgia 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 Z79.891 [facility] (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 Office Visit 12/25/2016 10:30a Main Office as Amarjit Mobley G89.21 Chronic pain due Of 12/20/13 DO, MPH to trauma M54.5 Low back pain M46.1 Sacroiliitis, not elsewhere classified Z79.891 [facility] (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 Office Visit 11/23/2016 10:30a Main Office as Amarjit Mobley G89.21 Chronic pain due Of 12/20/13 DO, MPH to trauma M54.5 Low back pain M46.1 Sacroiliitis, not elsewhere classified Office Visit 10/26/2016 10:45a Main Office as Anne Patten G89.Maureen Chronic pain Of 2 [employer] due to trauma M54.5 Low back pain Z71.89 Other specified counseling 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 Z79.891 [facility] (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 Office Visit 09/26/2016 10:45a Main Office as Anne Patten G89.Maureen Chronic pain Of 12/20/13 [place] [employer] due to trauma M54.5 Low back pain Z71.89 Other specified counseling 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 Z79.891 [facility] (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 Office Visit 08/25/2016 11:00a Main Office as Anne Patten G89.21 Chronic pain Of 12/20/13 [place] [employer] due to trauma M54.5 Low back pain Z71.89 Other specified counseling Z79.891 [facility] (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 Office Visit 07/27/2016 9:45a Main Office as Anne Patten G89.21 Chronic pain Of 12/20/13 [place] [employer] due to trauma M54.5 Low back pain Z71.89 Other specified counseling 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 Z79.891 [facility] (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 Office Visit 06/27/2016 10:00a Main Office as Amarjit Mobley G89.21 Chronic pain due Of 12/20/13 DO, MPH to trauma M54.5 Low back pain M46.1 Sacroiliitis, not elsewhere classified Z79.891 [facility] (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 Office Visit 03/31/2016 10:30a Main Office as Amarjit Mobley G89.29 Other chronic Of 12/20/13 DO, MPH pain M54.2 Cervicalgia M54.12 Radiculopathy, cervical region Office Visit 03/28/2016 10:30a Main Office as Amarjit Mobley G89.21 Chronic pain due Of 12/20/13 DO, MPH to trauma M54.5 Low back pain M46.1 Sacroiliitis, not elsewhere classified Z79.891 [facility] (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 Z79.891 [facility] (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 Office Visit 03/27/2016 2:00p Main Office as Amarjit Mobley G89.29 Other chronic Of 12/20/13 DO, MPH pain M54.2 Cervicalgia 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 Z71.89 Other specified counseling G54.2 Cervical root disorders, not elsewhere classified Office Visit 02/24/2016 10:45a Main Office as Amarjit Mobley G89.21 Chronic pain due Of 12/20/13 DO, MPH to trauma M54.5 Low back pain M46.1 Sacroiliitis, not elsewhere classified Z79.891 [facility] (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 Office Visit 01/25/2016 10:30a Main Office as Amarjit Mobley G89.21 Chronic pain due Of 12/20/13 DO, MPH to trauma M54.5 Low back pain M46.1 Sacroiliitis, not elsewhere classified M79.1 Myalgia Z79.891 [facility] (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 Office Visit 12/30/2015 10:00a Main Office as Amarjit Mobley G89.21 Chronic pain due Of 12/20/13 DO, MPH to trauma M54.5 Low back pain Office Visit 11/30/2015 10:00a Main Office as Amarjit Mobley G89.21 Chronic pain due Of 12/20/13 DO, MPH to trauma M54.5 Low back pain M79.1 Myalgia G90.3 Multi-system degeneration of the autonomic nervous system Office Visit 11/01/2015 9:15a Main Office as Amarjit Mobley G89.21 Chronic pain due Of 12/20/13 DO, MPH to trauma M54.5 Low back pain M79.1 Myalgia Z79.891 [facility] (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 Office Visit 10/01/2015 9:30a Main Office as Amarjit Mobley G89.21 Chronic pain due Of 12/20/13 DO, MPH to trauma M54.5 Low back pain M46.1 Sacroiliitis, not elsewhere classified M79.1 Myalgia Office Visit 09/14/2015 10:30a Main Office as Amarjit Mobley G89.21 Chronic pain due Of 12/20/13 DO, MPH to trauma M54.5 Low back pain M46.1 Sacroiliitis, not elsewhere classified M79.1 Myalgia Office Visit 09/02/2015 9:15a Main Office as Amarjit Mobley G89.21 Chronic pain due Of 12/20/13 DO, MPH to trauma M54.5 Low back pain M79.1 Myalgia Office Visit 08/03/2015 9:30a Main Office as Anne Patten 338.21 Chronic Pain Of 12/20/13 [employer] [employer] Due To Trauma 724.4 Neuritis Or Radiculitis Thoracic Or Lumbosacral Unspec 724.2 Lumbago Office Visit 07/02/2015 9:00a Main Office as Amarjit Mobley, 338.21 Chronic Pain Due Of 12/20/13 DO, MPH To Trauma 724.2 Lumbago 724.4 Neuritis Or Radiculitis Thoracic Or Lumbosacral Unspec Office Visit 06/04/2015 2:15p Main Office as Anne Patten, 338.21 Chronic Pain Of 12/20/13 BONBON DIPPER Due To Trauma 724.2 Lumbago 724.4 Neuritis Or Radiculitis Thoracic Or Lumbosacral Unspec 337.9 Autonomic Nervous System Disorder Unspec Office Visit 05/04/2015 10:20a Main Office as Anne Patten 338.21 Chronic Pain Of 12/20/13 BONBON DIPPER Due To Trauma 724.2 Lumbago 720.2 Sacroiliitis Not Elsewhere Classified 724.4 Neuritis Or Radiculitis Thoracic Or Lumbosacral Unspec V58.69 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 Packaging Technician (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) Use Encounter Office Visit 04/02/2015 10:00a Main Office as Anne Patten 338.21 Chronic Pain Of 12/20/13 BONBON DIPPER Due To Trauma 720.2 Sacroiliitis Not Elsewhere Classified 724.2 Lumbago 724.4 Neuritis Or Radiculitis Thoracic Or Lumbosacral Unspec V58.69 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 Packaging Technician (Current) Use Encounter Office Visit 03/03/2015 10:15a Main Office as Amarjit Mobley, 338.21 Chronic Pain Due Of 12/20/13 DO, MPH To Trauma 724.2 Lumbago 724.4 Neuritis Or Radiculitis Thoracic Or Lumbosacral Unspec 720.2 Sacroiliitis Not Elsewhere Classified Office Visit 02/02/2015 9:45a Main Office as Amarjit Mobley, 338.21 Chronic Pain Due Of 12/20/13 DO, MPH To Trauma 724.2 Lumbago 724.4 Neuritis Or Radiculitis Thoracic Or Lumbosacral Unspec Office Visit 01/01/2015 1:00p Main Office as Amarjit Mobley, 338.21 Chronic Pain Due Of 12/20/13 DO, MPH To Trauma 724.2 Lumbago 724.4 Neuritis Or Radiculitis Thoracic Or Lumbosacral Unspec Office Visit 12/02/2014 3:30p Main Office as Amarjit Mobley, 338.21 Chronic Pain Due Of 12/20/13 DO, MPH To Trauma 724.2 Lumbago 724.4 Neuritis Or Radiculitis Thoracic Or Lumbosacral Unspec V58.69 Medications Chcf (Current) Use Encounter Office Visit 11/02/2014 4:15p Main Office as Amarjit Mobley, 338.21 Chronic Pain Due Of 12/20/13 DO, MPH To Trauma 724.2 Lumbago 724.4 Neuritis Or Radiculitis Thoracic Or Lumbosacral Unspec Office Visit 10/05/2014 9:15a Main Office as Amarjit Mobley, 338.21 Chronic Pain Due Of 12/20/13 DO, MPH To Trauma 724.2 Lumbago 724.4 Neuritis Or Radiculitis Thoracic Or Lumbosacral Unspec 720.2 Sacroiliitis Not Elsewhere Classified Office Visit 09/03/2014 9:15a Main Office as Amarjit Mobley, 338.21 Chronic Pain Due Of 12/20/13 DO, MPH To Trauma 724.2 Lumbago 724.4 Neuritis Or Radiculitis Thoracic Or Lumbosacral Unspec Office Visit 08/06/2014 9:30a Main Office as Amarjit Mobley, 338.21 Chronic Pain Due Of 12/20/13 DO, MPH To Trauma 724.2 Lumbago 724.4 Neuritis Or Radiculitis Thoracic Or Lumbosacral Unspec 720.2 Sacroiliitis Not Elsewhere Classified V58.69 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 Packaging Technician (Current) Use Encounter Office Visit 07/07/2014 9:45a Main Office as Amarjit Mobley, 338.21 Chronic Pain Due Of 12/20/13 DO, MPH To Trauma 724.2 Lumbago 724.4 Neuritis Or Radiculitis Thoracic Or Lumbosacral Unspec Office Visit 06/05/2014 10:30a Main Office as Amarjit Mobley, 338.21 Chronic Pain Due Of 12/20/13 DO, MPH To Trauma 724.2 Lumbago Office Visit 05/06/2014 10:15a Main Office as Amarjit Mobley, 338.21 Chronic Pain Due Of 12/20/13 DO, MPH To Trauma 724.2 Lumbago 724.4 Neuritis Or Radiculitis Thoracic Or Lumbosacral Unspec Office Visit 04/03/2014 9:00a Main Office as Amarjit Mobley, 338.21 Chronic Pain Due Of 12/20/13 DO, MPH To Trauma 724.2 Lumbago 724.4 Neuritis Or Radiculitis Thoracic Or Lumbosacral Unspec 720.2 Sacroiliitis Not Elsewhere Classified Office Visit 03/03/2014 9:30a Main Office as Amarjit Mobley, 338.21 Chronic Pain Due Of 12/20/13 DO, MPH To Trauma 724.2 Lumbago 724.4 Neuritis Or Radiculitis Thoracic Or Lumbosacral Unspec 729.1 Myalgia & Myositis Unspec V58.69 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 Packaging Technician (Current) Use Encounter V58.69 Medications Chcf (Current) Use Encounter Office Visit 02/06/2014 10:30a Main Office as Amarjit Mobley, 338.21 Chronic Pain Due Of 12/20/13 DO, MPH To Trauma 724.2 Lumbago 724.4 Neuritis Or Radiculitis Thoracic Or Lumbosacral Unspec 729.1 Myalgia & Myositis Unspec Office Visit 01/07/2014 10:00a Main Office as Amarjit Mobley, 338.21 Chronic Pain Due Of 12/20/13 DO, MPH To Trauma 724.2 Lumbago 724.4 Neuritis Or Radiculitis Thoracic Or Lumbosacral Unspec Office Visit 12/08/2013 9:30a Main Office as Amarjit Mobley, 338.21 Chronic Pain Due Of 12/20/13 DO, MPH To Trauma 724.2 Lumbago 724.4 Neuritis Or Radiculitis Thoracic Or Lumbosacral Unspec 720.2 Sacroiliitis Not Elsewhere Classified 729.1 Myalgia & Myositis Unspec Office Visit 11/07/2013 11:15a Main Office as Amarjit Mobley, 338.21 Chronic Pain Due Of 12/20/13 DO, MPH To Trauma 724.2 Lumbago 724.4 Neuritis Or Radiculitis Thoracic Or Lumbosacral Unspec 720.2 Sacroiliitis Not Elsewhere Classified 729.1 Myalgia & Myositis Unspec 720.1 Enthesopathy Spinal Office Visit 10/09/2013 10:15a Main Office as Amarjit Mobley, 338.21 Chronic Pain Due Of 12/20/13 DO, MPH To Trauma 724.2 Lumbago 724.4 Neuritis Or Radiculitis Thoracic Or Lumbosacral Unspec 720.2 Sacroiliitis Not Elsewhere Classified 729.1 Myalgia & Myositis Unspec Office Visit 09/11/2013 10:15a Main Office as Amarjit Mobley, 338.21 Chronic Pain Due Of 12/20/13 DO, MPH To Trauma 724.2 Lumbago 724.4 Neuritis Or Radiculitis Thoracic Or Lumbosacral Unspec 720.2 Sacroiliitis Not Elsewhere Classified 729.1 Myalgia & Myositis Unspec Office Visit 08/15/2013 9:00a Main Office as Of Amarjit Mobley DO, 724.2 Lumbago 12/20/13 MPH 724.4 Neuritis Or Radiculitis Thoracic Or Lumbosacral Unspec Office Visit 07/17/2013 1:30p Main Office as Of Amarjit Mobley DO, 724.2 Lumbago 12/20/13 MPH 720.2 Sacroiliitis Not Elsewhere Classified 724.4 Neuritis Or Radiculitis Thoracic Or Lumbosacral Unspec Office Visit 06/17/2013 3:30p Main Office as Of Amarjit Mobley DO, 724.2 Lumbago 12/20/13 MPH 720.2 Sacroiliitis Not Elsewhere Classified 724.4 Neuritis Or Radiculitis Thoracic Or Lumbosacral Unspec Office Visit 05/20/2013 4:00p Main Office as Of Amarjit Mobley DO, 724.2 Lumbago 12/20/13 MPH 720.2 Sacroiliitis Not Elsewhere Classified 724.4 Neuritis Or Radiculitis Thoracic Or Lumbosacral Unspec Office Visit 05/06/2013 10:00a Main Office as Of Amarjit Mobley DO, 724.2 Lumbago 12/20/13 MPH 720.2 Sacroiliitis Not Elsewhere Classified 724.4 Neuritis Or Radiculitis Thoracic Or Lumbosacral Unspec Office Visit 04/04/2013 11:15a Main Office as Of Amarjit Mobley DO, 724.2 Lumbago 12/20/13 MPH 720.2 Sacroiliitis Not Elsewhere Classified 724.4 Neuritis Or Radiculitis Thoracic Or Lumbosacral Unspec Office Visit 03/11/2013 3:00p Main Office as Of Amarjit Mobley DO, 724.2 Lumbago 12/20/13 MPH 720.2 Sacroiliitis Not Elsewhere Classified Office Visit 03/06/2013 9:45a Main Office as Of Amarjit Mobley DO, 724.2 Lumbago 12/20/13 MPH 720.2 Sacroiliitis Not Elsewhere Classified Office Visit 02/05/2013 9:30a Main Office as Of Amarjit Mobley DO, 724.2 Lumbago 12/20/13 MPH 724.4 Neuritis Or Radiculitis Thoracic Or Lumbosacral Unspec Office Visit 01/06/2013 9:30a Main Office as Of Amarjit Mobley DO, 724.2 Lumbago 12/20/13 MPH 724.4 Neuritis Or Radiculitis Thoracic Or Lumbosacral Unspec Office Visit 12/06/2012 1:45p Main Office as Of Amarjit Mobley DO, 724.2 Lumbago 12/20/13 MPH 720.2 Sacroiliitis Not Elsewhere Classified 724.4 Neuritis Or Radiculitis Thoracic Or Lumbosacral Unspec Office Visit 11/22/2012 2:45p Main Office as Of Amarjit Mobley DO, 724.2 Lumbago 12/20/13 MPH 720.2 Sacroiliitis Not Elsewhere Classified Office Visit 11/07/2012 9:15a Main Office as Of Amarjit Mobley DO, 724.2 Lumbago 12/20/13 MPH 720.2 Sacroiliitis Not Elsewhere Classified 724.4 Neuritis Or Radiculitis Thoracic Or Lumbosacral Unspec Office Visit 10/08/2012 11:30a Main Office as Of Amarjit Mobley DO, 724.2 Lumbago 12/20/13 MPH Office Visit 09/04/2012 3:30p Main Office as Of Amarjit Mobley DO, 724.2 Lumbago 12/20/13 MPH 724.4 Neuritis Or Radiculitis Thoracic Or Lumbosacral Unspec 720.2 Sacroiliitis Not Elsewhere Classified Office Visit 08/28/2012 3:45p Main Office as Of Amarjit Mobley DO, 724.2 Lumbago 12/20/13 MPH 720.2 Sacroiliitis Not Elsewhere Classified 724.4 Neuritis Or Radiculitis Thoracic Or Lumbosacral Unspec Office Visit 08/05/2012 4:30p Main Office as Of Amarjit Mobley DO, 724.2 Lumbago 12/20/13 MPH 720.2 Sacroiliitis Not Elsewhere Classified 724.4 Neuritis Or Radiculitis Thoracic Or Lumbosacral Unspec Office Visit 07/24/2012 3:30p Main Office as Of Amarjit Mobley DO, 724.2 Lumbago 12/20/13 MPH 720.2 Sacroiliitis Not Elsewhere Classified Office Visit 07/12/2012 9:00a Main Office as Of Amarjit Mobley DO, 724.2 Lumbago 12/20/13 MPH 720.2 Sacroiliitis Not Elsewhere Classified 724.4 Neuritis Or Radiculitis Thoracic Or Lumbosacral Unspec Office Visit 06/28/2012 9:00a Main Office as Of Amarjit Mobley DO, 724.2 Lumbago 12/20/13 MPH 724.4 Neuritis Or Radiculitis Thoracic Or Lumbosacral Unspec Plan of Treatment Future Appointment(s):01/02/2019 11:00 am - Amarjit Mobley DO MPH at Main Office as Of 12/20/1400 9:00 am - Amarjit Mobley DO MPH at Main Office as Of 12/20/1400 - Amarjit Mobley DO, MPHG89.21 Chronic pain due to traumaComments:Chronic. Symptoms and complaints discussed and reviewed today. No significant changes in physical findings. Continue current medical pain management.M54.17 Radiculopathy, lumbosacral regionComments:Chronic. Symptoms and complaints discussed and reviewed today. No changes in physical findings; patient is stable on current medical therapy.Z79.891 [facility]FP (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New Labs:Urine Drug Screen, Ordered: 11/29/18Comments:~B_Urine drug screen sample taken. Rapid Point of Care Cup was reviewed in office with patient. Will send out UDT Rapid to Quantitative lab for confirmation testing. Urine Drug Testing (UDT) was done today to monitor opiate use and to monitor possible use of illicit substances. I will discuss the results at the next appointment from the Quantitative lab.~b_The following tests were ordered:6 AM, AMPH, CHERYL, LAUREEN, BUP, CARIS, COCM, COT, ETG, FENT, MCSHSG, OPI, OXY, PCP, TAPEN , XTSY, ZOLP. ~I_A urine drug test (UDT) using a rapid screen cup was ordered for this patient and collected on site today. Creatinine has been ordered as well for specimen validity, not for kidney function. ~B_Urine Drug Testing is a mandatory component of chronic opioid management, as part of the baseline assessment and ongoing re-assessment of opioid therapy. Per [place] [employer], [place] Non-Acute Pain Medical Treatment Guidelines, section F.3.d.i. ~b_This test is to be used in conjunction with other clinical information when decisions are to be made to continue, adjust or discontinue treatment. This information includes clinical observation, results of addiction screening, pill counts, and prescription drug monitoring reports. Preliminary UDT screen results are not final and should not be used to determine patient care or plan of treatment. This sample will be sent out for a more comprehensive quantitative confirmation LCMS study. It is part of the treatment process of prescribing controlled substances and is considered standard of care at this clinic.~i_ ~b_AllComments:All above symptoms and complaints discussed as well as diagnoses reviewed.Continue trial of opioid pain management - note changes below; injection therapy, osteopathic manipulation (OMT), PT / modalities, and consults as needed to manage chronic pain.Side effects discussed; anticipatory guidance given. Patient clearly understands and agrees with all medical treatments and suggestions. All medicines prescribed are adequate and appropriate for this patient's complaint of pain, medical history, physical, and personal goals.Goals of Treatment are to provide adequate and appropriate multidisciplinary medical pain management to increase/ maintain patient's quality of life and functionality while maintaining satisfactory side effect profile and minimizing exterminator termite end-organ damage. Activity as toleratedContinue with PCP
[2018-12-04] MEDS ORDERED: Nystatin CREAM* 15 GM TUBE TOPICAL ONE (00:26)
--- NOTE | 2018-12-04 00:30 | ED ---
Complex/Multi-Sys Presentation - HPI Summary HPI Summary: Patient complains of possible occluded PICC line in right upper extremity status post shoulder surgery infection. Patient receiving IV antibiotics at home, states he his was unable to administer IV antibiotics through the PICC line this evening, and was advised by to come to the ED for further evaluation.. Also complains of pruritic painful rash to groin 2 days. Denies fever, cough, sore throat, CP, SOB, N/V/D, abdominal pain, change in urine, change in BM. Medical history is shoulder surgery, HTN, HDL, angina. - History Of Current Complaint Chief Complaint: EDGeneral Time Seen by Provider: 12/04/18 00:15 Hx Obtained From: Patient Onset/Duration: Sudden Onset Severity Currently: Moderate Severity Initially: Moderate - Allergies/Home Medications Allergies/Adverse Reactions: Allergies Allergy/AdvReac Type Severity Reaction Status Date / Time aspirin Allergy Swelling Verified 12/03/18 23:55 Of Face,Lips,& Throat ibuprofen Allergy Swelling Verified 12/03/18 23:55 Of Face,Lips,& Throat naproxen Allergy Swelling Verified 12/03/18 23:55 Of Face,Lips,& Throat PMH/Surg Hx/FS Hx/Imm Hx Endocrine/Hematology History: Denies: Hx Diabetes, Hx Thyroid Disease Cardiovascular History: Reports: Hx Angina, Hx Hypercholesterolemia, Hx Hypertension, Other Cardiovascular Problems/Disorders - Tachycardia Denies: Hx Coronary Artery Disease, Hx Myocardial Infarction, Hx Pacemaker/ ICD, Hx Valvular Heart Disease Respiratory History: Denies: Hx Asthma, Hx Chronic Obstructive Pulmonary Disease (COPD) GI History: Reports: Hx Gastroesophageal Reflux Disease, Other GI Disorders - Cholecystectomy, appendectomy Denies: Hx Ulcer History: Denies: Hx Dialysis, Hx Renal Disease Musculoskeletal History: Reports: Hx Back Problems Sensory History: Denies: Hx Hearing Aid, Other Sensory Impairments - UTD URGENT ICU TRANSFER Opthamlomology History: Denies: Other Sensory Impairments - UTD URGENT ICU TRANSFER Neurological History: Denies: Hx Developmental Delay Comment Only: Other Neuro Impairments/Disorders - UTD URGENT ICU TRANSFER Psychiatric History: Reports: Hx Anxiety Denies: Hx Panic Disorder - Surgical History Surgery Procedure, Year, and Place: APPENDIX, GALLBLADDER, TONSILS. 09/01/13 - DISSOLVING [employer] Pellets put into LEFT & RiGHT hip - ( HAVE DISSOLVED AT THIS TIME) Infectious Disease History: No Infectious Disease History: Denies: Hx Clostridium Difficile, Hx Hepatitis, Hx Human Immunodeficiency Virus (HIV), Hx of Known/Suspected MRSA, Hx Shingles, Hx Tuberculosis, Hx Known/ Suspected VRE, Hx Known/Suspected VRSA, History Other Infectious Disease, Traveled Outside the [place] in Last 30 Days - Family History Known Family History: Positive: Other Negative: Cardiac Disease Family History: Mother - Crohn's. Father - Liver dz - Social History Alcohol Use: None Hx Substance Use: No Substance Use Type: Reports: None Substance Use Comment - Amount & Last Used: UTD URGENT ICU TRANSFER Hx Tobacco Use: Yes Smoking Status (MU): Former Smoker Review of Systems Constitutional: Negative Eyes: Negative ENT: Negative Cardiovascular: Negative Respiratory: Negative Gastrointestinal: Negative Genitourinary: Negative Musculoskeletal: Negative Positive: Rash Neurological: Negative Psychological: Normal All Other Systems Reviewed And Are Negative: Yes Physical Exam - Summary Physical Exam Summary: Nurse demonstrated that PICC line could flush with saline flush. Patient has red pruritic rash to bilateral inner thighs and inguinal crease. Testicles are nontender to palpation. Penis appears normal. Triage Information Reviewed: Yes Vital Signs On Initial Exam: Initial Vitals Temp Pulse Resp BP Pulse Ox 98.2 F 73 16 173/88 98 12/03/18 23:47 12/03/18 23:47 12/03/18 23:47 12/03/18 23:47 12/03/18 23:47 Vital Signs Reviewed: Yes Appearance: Positive: Well-Appearing Skin: Positive: Warm Head/Face: Positive: Normal Head/Face Inspection Eyes: Positive: Normal Neck: Positive: Supple Respiratory/Lung Sounds: Positive: Clear to Auscultation Cardiovascular: Positive: Normal Abdomen Description: Positive: Nontender Musculoskeletal: Positive: Normal Neurological: Positive: Normal Psychiatric: Positive: Normal AVPU Assessment: Alert - Maryann Coma Scale Best Eye Response: 4 - Spontaneous Best Motor Response: 6 - Obeys Commands Best Verbal Response: 5 - Oriented Coma Scale Total: 15 Diagnostics - Vital Signs Vital Signs Temp Pulse Resp BP Pulse Ox 12/03/18 23:47 98.2 F 73 16 173/88 98 - Laboratory Lab Statement: Any lab studies that have been ordered have been reviewed, and results considered in the medical decision making process. Complex Multi-Symp Course/Dx Course Of Treatment: Patient complains of possible occluded PICC line in right upper extremity status post shoulder surgery infection. Patient receiving IV antibiotics at home, states he his was unable to administer IV antibiotics through the PICC line this evening, and was advised by to come to the ED for further evaluation.. Also complains of pruritic painful rash to groin 2 days. Denies fever, cough, sore throat, CP, SOB, N/V/D, abdominal pain, change in urine, change in BM. Medical history is shoulder surgery, HTN, HDL, angina. Physical exam:Nurse demonstrated that PICC line could flush with saline flush. Patient has red pruritic rash to bilateral inner thighs and inguinal crease. Testicles are nontender to palpation. Penis appears normal. Vital signs within normal limits. Decline flushed by nurse. Rx for nystatin topical cream for fungal infection of groin - Diagnoses Provider Diagnoses: Occluded PICC line, Nery infection Discharge - Sign-Out/Discharge Documenting (check all that apply): Patient Departure - Discharge Plan Condition: Stable Disposition: HOME Patient Education Materials: Skin Yeast Infection (ED), How to Flush Your PICC or Midline Catheter (ED) Referrals: Skyler Carlos MD [Primary Care Provider] - Additional Instructions: Apply nystatin cream topically to rash twice a day until rash resolved. Follow- up with primary care. Return to the ED for any new or worsening symptoms. - Billing Disposition and Condition Condition: STABLE Disposition: Home
[2018-12-04 00:40] VITALS: BP 0/0
== END 2018-12-04 00:38 | disposition home or self-care (01) ==
LOC: ED 23:45
DX: T82.898A Other specified complication of vascular prosthetic devices, implants and grafts, initial encounter (principal); B37.2 Candidiasis of skin and nail; Z88.6 Allergy status to analgesic agent; Z87.891 Personal history of nicotine dependence
CPT/HCPCS: 99282; A9270-GY

== ENCOUNTER 2020-04-25 14:53 | Observation (INO) ==
[2020-04-25 15:33] LABS: ABS Lymphocytes 0.8 10^3/ul (1.0-4.8); ABS Monocytes 0.8 10^3/ul (0-0.8); Eosinophil % 0.3 %; Hematocrit 41 % (42-52); Hemoglobin 13.7 g/dL (14.0-18.0); Lymphocyte % 6.3 %; Mean Corpuscular HGB Conc 34 g/dL (31-36); Mean Corpuscular Hemoglobin 27 pg (27-31); Mean Corpuscular Volume 81 fL (80-94); Mean Platelet Volume 8.4 fL (7.4-10.4); Platelet Count 290 10^3/uL (150-450); Red Blood Count 4.99 10^6 /uL (4.18-5.48); Red Cell Distribution Width 14 % (10-15); White Blood Count 12.7 10^3/uL (3.5-10.8)
[2020-04-25 15:54] LABS: ALT 25 U/L (7-52); AST 20 U/L (13-39); Albumin 3.9 g/dL (3.2-5.2); Albumin/Globulin Ratio 1.2 (1-3); Alkaline Phosphatase 98 U/L (34-104); Anion Gap 6 mmol/L (2-11); BUN/Creatinine Ratio 13.2 (8-20); Blood Urea Nitrogen 10 mg/dL (6-24); CO2 Carbon Dioxide 27 mmol/L (22-32); Calcium 8.9 mg/dL (8.6-10.3); Chloride 102 mmol/L (101-111); EGFR African American 134.2 (>60); EGFR Non-African American 110.9 (>60); Globulin 3.2 g/dL (2-4); Glucose 108 mg/dL (70-100); Potassium 3.6 mmol/L (3.5-5.0); Sodium 135 mmol/L (135-145); Total Protein 7.1 g/dL (6.4-8.9)
[2020-04-25 16:02] LABS: Troponin I 0.03 ng/mL (<0.03)
[2020-04-25] MEDS ORDERED: Nitro 2% OINT (Nitroglycerin) 1 INCH/PAK TOPICAL ONE (17:24)
[2020-04-25] MEDS ORDERED: Levalbuterol HFA INHALER MDI INH PRN (17:47)
[2020-04-25] MEDS ORDERED: Enoxaparin 40 MG/0.4 ML SYR(*) SUBCUT SCH (18:00)
[2020-04-25 18:09] LABS: Magnesium 1.7 mg/dL (1.9-2.7)
[2020-04-25] MEDS ORDERED: Magnesium Sulfate IV 1GM/100ML 1 GM/100 ML BAG IV ONE (18:21)
[2020-04-25 18:55] LABS: Troponin I 0.06 ng/mL (<0.03)
[2020-04-25 21:47] LABS: Troponin I 0.04 ng/mL (<0.03)
[2020-04-26 06:41] LABS: ABS Basophils 0.1 10^3/ul (0-0.2); ABS Eosinophils 0.1 10^3/ul (0-0.6); ABS Lymphocytes 1.8 10^3/ul (1.0-4.8); ABS Monocytes 0.7 10^3/ul (0-0.8); Hematocrit 39 % (42-52); Hemoglobin 13.3 g/dL (14.0-18.0); Lymphocyte % 20.7 %; Mean Corpuscular HGB Conc 34 g/dL (31-36); Mean Corpuscular Hemoglobin 28 pg (27-31); Mean Corpuscular Volume 82 fL (80-94); Mean Platelet Volume 8.4 fL (7.4-10.4); Platelet Count 262 10^3/uL (150-450); Red Blood Count 4.78 10^6 /uL (4.18-5.48); Red Cell Distribution Width 13 % (10-15); White Blood Count 8.9 10^3/uL (3.5-10.8)
[2020-04-26 06:58] LABS: HDL Cholesterol 36.1 mg/dL
[2020-04-26] MEDS ORDERED: Aminophylline 25 MG/ML VIAL ONE (08:36)
[2020-04-26] MEDS ORDERED: Regadenoson 0.4 MG/5 ML SYRINGE ONE (08:36)
[2020-04-26 12:39] VITALS: BP 140/80
== END 2020-04-26 16:24 | disposition home or self-care (01) ==
LOC: MEDTELE 14:53 → ED 14:53 → MEDTELE 18:57
PROVIDERS: ADMIT Nurse Practitioner; ATTEND Hospitalist